=== PATIENT | female | born 1940 | race Caucasian/White ===

== ENCOUNTER 2018-12-31 10:25 | Inpatient (IN) | payer MEDICARE, BC ==
[2018-12-31] MEDS ORDERED: Sodium Chloride 0.9% 100 ML IV SCH (10:54)
[2018-12-31] MEDS ORDERED: Ondansetron 4 MG Tab.DIS PO PRN (10:54)
[2018-12-31] MEDS ORDERED: Sodium Chloride 0.9% 10 ML Syringe FLUSH PRN ×2 (10:54)
--- NOTE | 2018-12-31 11:13 | PCM.HP ---
H&P History of Present Illness - General Date of Service: 12/31/18 Admit Problem/Dx: Admission Diagnosis/Problem Admission Diagnosis/Problem Weakness Source of Information: Patient, Old Records, RN History Limitations: Reports: No Limitations - History of Present Illness Initial Comments - Free Text/Narative: Mrs Goss is a 78-year-old female who initially came through the ED 01/02 due to a dry cough, nausea, anorexia and generalized not feeling well about 4-5 days prior. It was determined she had upper lobe pneumonia on her right side along with influenza A and due to her past medical history she was considered high risk and was started on antivirals Tamiflu. She has a history of heart failure, COPD, significant renal disease, hypertension, and type 2 diabetes. Socially she lives with her is somewhat independent and has close family members. He was admitted for antivirals, antibiotics, and respiratory support. - Related Data Allergies/Adverse Reactions: Allergies Allergy/AdvReac Type Severity Reaction Status Date / Time gentamicin [Gentamicin] Allergy Severe Anaphylactic Verified 12/26/18 11:05 Shock cefuroxime axetil Allergy Diarrhea Verified 12/26/18 11:05 [From Ceftin] rosuvastatin calcium Allergy Muscle Verified 12/26/18 11:05 [From Crestor] Aches simvastatin [From Zocor] Allergy Muscle Verified 12/26/18 11:05 Aches Home Medications: Home Meds Multivitamin with Minerals [One Daily] 1 each PO BEDTIME 12/15/13 [History] Timolol Maleate/PF [Timoptic 0.5% Ocudose Drop] 1 each EYEBOTH DAILY 12/15/13 [ History] Carvedilol [Coreg] 12.5 mg PO BIDMEALS 03/21/16 [History] Aspirin [Halfprin] 81 mg PO DAILY 12/26/18 [History] Cholecalciferol (Vitamin D3) [Vitamin D3] 2,000 units PO BEDTIME 12/26/18 [ History] Fluticasone/Salmeterol [Advair 100-50] 1 puff INH BID 12/26/18 [History] Furosemide [Lasix] 20 mg PO DAILY 12/26/18 [History] Insulin Detemir [Levemir] 17 unit SUBCUT BEDTIME 12/26/18 [History] Losartan [Cozaar] 100 mg PO DAILY 12/26/18 [History] Ubidecarenone [Coenzyme Q-10] 300 mg PO BEDTIME 12/26/18 [History] cloNIDine [Catapres] 0.2 mg PO BID 12/26/18 [History] hydrALAZINE [Apresoline] 100 mg PO BID 12/26/18 [History] Past Medical History HEENT History: Reports: Glaucoma, Sinusitis Other HEENT History: sinusitis "quite regularly" Cardiovascular History: Reports: Heart Failure, Hypertension Respiratory History: Reports: COPD, Pneumonia, Recurrent, SOB Gastrointestinal History: Reports: Chronic Constipation Genitourinary History: Reports: Other (See Below) Other Genitourinary History: 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 [employer] History: Reports: Fibroids, , Other (See Below) Other OB/BYN History: Hysterectomy Musculoskeletal History: Reports: None Endocrine/Metabolic History: Reports: Diabetes, Type II - Infectious Disease History Infectious Disease History: Reports: Chicken Pox, Influenza, Measles, Mumps - Past Surgical History Head Surgeries/Procedures: Reports: None HEENT Surgical History: Reports: Adenoidectomy, Cataract Surgery, Tonsillectomy Cardiovascular Surgical History: Reports: None Respiratory Surgical History: Reports: None GI Surgical History: Reports: Appendectomy, Colonoscopy Female Surgical History: Reports: Hysterectomy Endocrine Surgical History: Reports: None Musculoskeletal Surgical History: Reports: None Dermatological Surgical History: Reports: None Social & Family History - Family History Family Medical History: Noncontributory Cardiac: Reports: Heart Failure Endocrine/Metabolic: Reports: Diabetes, type II Oncologic: Reports: Brain - Caffeine Use Caffeine Use: Reports: Coffee, Soda Other Caffeine Use: decaf coffe and diet pop - Living Situation & Occupation Living situation: Reports: , with Family Occupation: Retired H&P Review of Systems - Review of Systems: Review Of Systems: See Below General: Reports: Weakness. Denies: Fever, Diaphoresis, Decreased Appetite, Weight Gain HEENT: Reports: No Symptoms Pulmonary: Reports: Shortness of Breath. Denies: Wheezing, Pleuritic Chest Pain , Cough, Sputum Cardiovascular: Reports: Dyspnea on Exertion Gastrointestinal: Reports: No Symptoms Genitourinary: Reports: No Symptoms Musculoskeletal: Reports: No Symptoms Skin: Reports: Dryness, Bruising Psychiatric: Reports: Anxiety Neurological: Denies: Confusion, Tremors, Change in Speech Hematologic/Lymphatic: Reports: Anemia Immunologic: Reports: No Symptoms Exam - Exam Exam: See Below - Exam Quality Assessment: Supplemental Oxygen General: Alert, Oriented, Cooperative. No: Mild Distress HEENT: EACs Clear, EOMI Neck: Supple Lungs: Rhonchi Cardiovascular: Regular Rhythm, Systolic Murmur. No: Tachycardia GI/Abdominal Exam: Normal Bowel Sounds (Female) Exam: Deferred Rectal (Female) Exam: Deferred Back Exam: No: CVA Tenderness (L) Extremities: No: Pedal Edema Peripheral Pulses: 2+: Brachial (R), Radial (L) Skin: Warm, Dry, Intact Neurological: Cranial Nerves Intact Neuro Extensive - Mental Status: Alert Neuro Extensive - Motor, Sensory, Reflexes: CN II-XII Intact Psychiatric: Alert, Normal Affect, Anxious Problem List Initiated/Reviewed/Updated: Yes Orders Last 24hrs: Active Orders 24 hr Category Date Time Status Patient Status [ADT] Routine ADT 12/31/18 10:57 Ordered Blood Glucose Check, Bedside [RC] DAILY Care 12/31/18 10:54 Ordered Dietary Supplements [RC] TIDMEALS Care 12/31/18 10:54 Ordered Incentive Spirometry [RT Incentive Spirometry] [RC] Care 12/31/18 10:54 Ordered Q1HWA Oxygen Therapy [RC] PRN Care 12/31/18 10:54 Ordered Peripheral IV Care [RC] . DIRECTED Care 12/31/18 10:54 Ordered Pulse Oximetry [RC] PRN Care 12/31/18 10:54 Ordered RT Aerosol Therapy [RC] ASDIRECTED Care 12/31/18 10:54 Ordered RT Aerosol Therapy [RC] ASDIRECTED Care 12/31/18 10:55 Ordered RT Post Treatment Assessment [RC] Click to Edit Care 12/31/18 10:54 Ordered RT Pre-Treatment Assessment [RC] Click to Edit Care 12/31/18 10:54 Ordered Ready for Discharge [RC] PER UNIT ROUTINE Care 12/31/18 10:54 Ordered Up With Assistance [RC] ASDIRECTED Care 12/31/18 10:54 Ordered Vital Signs [RC] Q4H Care 12/31/18 10:54 Ordered Nutrition Reassessment/Plan, Adult [Consult to Cons 12/31/18 10:54 Ordered Ophthalmic Aide] [CONS] Routine PT Evaluation and Treatment [CONS] Routine Cons 12/31/18 10:54 Ordered [place] Diet [DIET] Diet 12/31/18 Lunch Ordered Acetaminophen [Tylenol] Med 12/31/18 10:54 Ordered 650 mg PO Q4H PRN Albuterol/Ipratropium [DuoNeb 3.0-0.5 MG/3 ML] Med 12/31/18 11:00 Ordered 3 ml NEB Q6HRRT Aspirin [Halfprin] Med 01/01/19 09:00 Ordered 81 mg PO DAILY Carvedilol [Coreg] Med 12/31/18 21:00 Ordered 12.5 mg PO BID Cholecalciferol (Vitamin D3) [Vitamin D3] Med 12/31/18 21:00 Ordered 2,000 units PO BEDTIME FA/Lycopene/Lut/MV,Ca,Iron,Min [Centrum] Med 12/31/18 21:00 Ordered 1 tab PO BEDTIME Fluticasone/Salmeterol [Advair Diskus 100-50] Med 12/31/18 21:00 Ordered 1 puff INH BID Insulin Detemir [Levemir] Med 12/31/18 21:00 Ordered 12 unit SUBCUT BEDTIME Losartan [Cozaar] Med 01/01/19 09:00 Ordered 100 mg PO DAILY Ondansetron [Zofran] Med 12/31/18 10:54 Ordered 4 mg IV Q6H PRN Sodium Chloride 0.9% [Normal Saline] 100 ml Med 12/31/18 10:54 Ordered IV ASDIRECTED Sodium Chloride 0.9% [Saline Flush] Med 12/31/18 10:54 Ordered 10 ml FLUSH Q8HR PRN Sodium Chloride 0.9% [Saline Flush] Med 12/31/18 10:54 Ordered 10 ml FLUSH Q8HR PRN Timolol Maleate [Timoptic 0.5% Ophth Soln] Med 01/01/19 09:00 Ordered 0 ml EYEBOTH DAILY cloNIDine [Catapres] Med 12/31/18 21:00 Ordered 0.3 mg PO BID hydrALAZINE [Apresoline] Med 12/31/18 21:00 Ordered 100 mg PO BID levoFLOXacin [Levaquin] Med 01/01/19 15:00 Ordered 250 mg PO Q48H Convert IV to Saline Lock [OM.PC] Routine Oth 12/31/18 10:54 Ordered Isolation [COMM] Routine Oth 12/31/18 10:54 Ordered Peripheral IV Insertion Adult [OM.PC] Routine Oth 12/31/18 10:54 Ordered Peripheral IV Insertion Adult [OM.PC] Routine Oth 12/31/18 10:54 Ordered RT Physical Performance Test [RESPCARE] Routine Oth 12/31/18 10:54 Ordered Code Status [Resuscitation Status] Routine Resus Stat 12/31/18 10:57 Ordered Medication Orders Acetaminophen (Tylenol) 650 mg PO Q4H PRN PRN Reason: Fever Greater Than 101 Albuterol/Ipratropium (Duoneb 3.0-0.5 Mg/3 Ml) 3 ml NEB Q6HRRT [facility] Aspirin (Halfprin) 81 mg PO DAILY [facility] Carvedilol (Coreg) 12.5 mg PO BID [facility] Cholecalciferol (Vitamin D3) 2,000 units PO BEDTIME [facility] Clonidine HCl (Catapres) 0.3 mg PO BID [facility] Hydralazine HCl (Apresoline) 100 mg PO BID [facility] Sodium Chloride (Normal Saline) 100 mls @ 50 mls/hr IV ASDIRECTED [facility] Insulin Detemir (Levemir) 12 unit SUBCUT BEDTIME [facility] Levofloxacin (Levaquin) 250 mg PO Q48H [facility] Losartan Potassium (Cozaar) 100 mg PO DAILY [facility] Multivitamins/Minerals (Centrum) 1 tab PO BEDTIME [facility] Ondansetron HCl (Zofran) 4 mg IV Q6H PRN PRN Reason: Nausea/Vomiting Fluticasone/Salmeterol (Advair Diskus 100-50) 1 puff INH BID [facility] Sodium Chloride (Saline Flush) 10 ml FLUSH Q8HR PRN PRN Reason: keep vein open Sodium Chloride (Saline Flush) 10 ml FLUSH Q8HR PRN PRN Reason: keep vein open Timolol Maleate (Timoptic 0.5% Ophth Soln) 0 ml EYEBOTH DAILY [facility] Assessment/Plan Comment:: History of present illness Mrs Goss is a 78-year-old female who initially came through the ED 2/ due to a dry cough, nausea, anorexia and generalized not feeling well about 4-5 days prior. It was determined she had upper lobe pneumonia on her right side along with influenza A and due to her past medical history she was considered high risk and was started on antivirals Tamiflu. She has a history of heart failure, COPD, significant renal disease, hypertension, and type 2 diabetes. Socially she lives with her is somewhat independent and has close family members. He was admitted for antivirals, antibiotics, and respiratory support. Acute care hospital course Mrs Rubin was treated with antibiotics along with antivirals. She did have significant acute on chronic renal compromise with elevated creatinine and decreased GFR, medications were adjusted and/or held for renal dose. She was hydrated and her creatinine did improve however at one point she did become slightly fluid overloaded signs of impending further rest for a compromise requiring Lasix 20 mg one time dose in which she responded well. She was treated for pneumonia with appropriate antibiotics. Respiratory therapy worked with patient quite well. She did require oxygen therapy however we were not able to completely wean her off before discharge. She did get significant shortness of breath with slight exertion that were easily recognizable with the slightest exertion and ambulation. Initial chest x-ray did show consistency with pneumonia with opacities and air bronchograms noted in her right infrahilar region. Repeated chest x-rays showed signs of mild pulmonary edema in which Lasix were given and she did improve. She remained in respiratory precautions, aggressive pulmonary toileting with incentive spirometer. Unknown PaO2 at rest or exertion however oxygen saturations were between 86-90% on the day of acute care discharge. Due to her deconditioning, requirements for oxygenation it was deemed necessity for [facility] facility to improve her oxygenation, stamina, and her overall condition. She agreed with plan Primary SNF problems Deconditioning Hypoxemia, oxygen support Pneumonia, CAP, RUL, Influence A, high risk population, completed renal dose Tamiflu. Hypokalemia, resolved Systolic hypertension in the elderly, SBP improved Acute on chronic renal failure, stage 5 (history of dialysis) creatinine January 2017 2.26 with a BUN 57, GFR 22 DD prophylaxis, LMWH Chronic problems Heart failure, chronic, functional class I , stable weight, no fluid overload, Hypertension, stable on multiple regimen, on ARB, increased clonidine T2DM, daily at bedtime long-acting Glaucoma Disposition, physical therapy consultation, change to SNF likely five-day course improve on stamina, oxygen conservation, further aggressive pulmonary toileting and ambulation close monitoring of her oxygen requirements. Change to oral antibiotics. Respiratory precautions, ICS. Consultations, Dr Mcknight, nephrology January 11 at 3:15pm. ([address] in [place] at [facility])
[2018-12-31] MEDS: Carvedilol 12.5 MG Tab PO SCH (17:03)
[2018-12-31] MEDS: Albuterol/Ipratropium 3.0-0.5 MG/3 ML Neb Soln NEB SCH ×2 (17:04→23:59)
[2018-12-31] MEDS: Fluticasone/Salmeterol 100-50 MCG Inhalation Powder 14/Diskus INH SCH (21:20)
[2018-12-31] MEDS: hydrALAZINE 50 MG Tab PO SCH (21:21)
[2018-12-31] MEDS: cloNIDine 0.1 MG Tab PO SCH (21:29)
[2018-12-31] MEDS: Multivitamins with Minerals/Iron/Folic Acid/Lycopene Tab PO SCH (21:30)
[2018-12-31] MEDS: Cholecalciferol (Vitamin D3) 1,000 Unit Tab PO SCH (21:31)
[2018-12-31] MEDS: Insulin Detemir 100 Units/ML 3 ML Pen SUBCUT SCH (21:32)
[2019-01-01] MEDS: Albuterol/Ipratropium 3.0-0.5 MG/3 ML Neb Soln NEB SCH ×4 (05:55→23:11)
[2019-01-01] MEDS: Aspirin 81 MG Tab.EC PO SCH (08:16)
[2019-01-01] MEDS: Losartan 50 MG Tab PO SCH (08:16)
[2019-01-01] MEDS: hydrALAZINE 50 MG Tab PO SCH ×2 (08:16→20:10)
[2019-01-01] MEDS: Carvedilol 12.5 MG Tab PO SCH ×2 (08:16→18:02)
[2019-01-01] MEDS: cloNIDine 0.1 MG Tab PO SCH ×2 (08:17→20:10)
[2019-01-01] MEDS: Fluticasone/Salmeterol 100-50 MCG Inhalation Powder 14/Diskus INH SCH ×2 (08:54→20:10)
[2019-01-01] MEDS: Enoxaparin 30 MG/0.3 ML Syringe SUBCUT SCH (09:17)
[2019-01-01] MEDS: Timolol Maleate 0.5% Ophth Soln 5 ML Bottle EYEBOTH SCH (09:18)
[2019-01-01] MEDS ORDERED: Levofloxacin/Dextrose 5%-Water 250 MG in Premix Bag 1 BAG IV SCH (15:00)
[2019-01-01] MEDS ORDERED: Levofloxacin 500 MG Tab PO SCH (15:00)
[2019-01-01] MEDS: Multivitamins with Minerals/Iron/Folic Acid/Lycopene Tab PO SCH (20:10)
[2019-01-01] MEDS: Cholecalciferol (Vitamin D3) 1,000 Unit Tab PO SCH (20:10)
[2019-01-01] MEDS: Insulin Detemir 100 Units/ML 3 ML Pen SUBCUT SCH (20:16)
[2019-01-02] MEDS: Albuterol/Ipratropium 3.0-0.5 MG/3 ML Neb Soln NEB SCH ×4 (04:58→22:11)
[2019-01-02] MEDS: Losartan 50 MG Tab PO SCH (08:03)
[2019-01-02] MEDS: Aspirin 81 MG Tab.EC PO SCH (08:03)
[2019-01-02] MEDS: cloNIDine 0.1 MG Tab PO SCH ×2 (08:04→20:23)
[2019-01-02] MEDS: Carvedilol 12.5 MG Tab PO SCH ×2 (08:04→17:07)
[2019-01-02] MEDS: hydrALAZINE 50 MG Tab PO SCH ×2 (08:04→20:23)
[2019-01-02] MEDS: Fluticasone/Salmeterol 100-50 MCG Inhalation Powder 14/Diskus INH SCH ×2 (08:45→20:22)
[2019-01-02] MEDS: Enoxaparin 30 MG/0.3 ML Syringe SUBCUT SCH (08:45)
[2019-01-02] MEDS: Timolol Maleate 0.5% Ophth Soln 5 ML Bottle EYEBOTH SCH (08:45)
[2019-01-02] MEDS: Acetaminophen 325 MG Tab PO PRN (11:30)
[2019-01-02] MEDS: Cholecalciferol (Vitamin D3) 1,000 Unit Tab PO SCH (20:21)
[2019-01-02] MEDS: Multivitamins with Minerals/Iron/Folic Acid/Lycopene Tab PO SCH (20:21)
[2019-01-02] MEDS: Insulin Detemir 100 Units/ML 3 ML Pen SUBCUT SCH (20:21)
[2019-01-03] MEDS: Albuterol/Ipratropium 3.0-0.5 MG/3 ML Neb Soln NEB SCH ×5 (05:24→22:06)
[2019-01-03] MEDS: Bisacodyl 5 MG Tab PO PRN ×2 (08:18→20:44)
[2019-01-03] MEDS: Aspirin 81 MG Tab.EC PO SCH (08:18)
[2019-01-03] MEDS: Losartan 50 MG Tab PO SCH (08:19)
[2019-01-03] MEDS: cloNIDine 0.1 MG Tab PO SCH ×2 (08:19→20:34)
[2019-01-03] MEDS: Carvedilol 12.5 MG Tab PO SCH ×2 (08:19→17:56)
[2019-01-03] MEDS: hydrALAZINE 50 MG Tab PO SCH ×2 (08:19→20:34)
[2019-01-03] MEDS: Timolol Maleate 0.5% Ophth Soln 5 ML Bottle EYEBOTH SCH (09:04)
[2019-01-03] MEDS: Fluticasone/Salmeterol 100-50 MCG Inhalation Powder 14/Diskus INH SCH ×2 (09:04→20:34)
[2019-01-03] MEDS: Enoxaparin 30 MG/0.3 ML Syringe SUBCUT SCH (10:03)
[2019-01-03] MEDS: Multivitamins with Minerals/Iron/Folic Acid/Lycopene Tab PO SCH (20:34)
[2019-01-03] MEDS: Cholecalciferol (Vitamin D3) 1,000 Unit Tab PO SCH (20:34)
[2019-01-03] MEDS: Insulin Detemir 100 Units/ML 3 ML Pen SUBCUT SCH (20:34)
[2019-01-03] MEDS ORDERED: hydrOXYzine HCl 25 MG Tab PO ONE (23:09)
[2019-01-04] MEDS: Acetaminophen 325 MG Tab PO PRN (00:25)
[2019-01-04] MEDS ORDERED: LORazepam 0.5 MG Tab PO PRN (00:30)
[2019-01-04] MEDS ORDERED: Furosemide 40 MG/4 ML VIAL IVPUSH ONE (01:30)
[2019-01-04] MEDS ORDERED: Furosemide 40 MG/4 ML VIAL ONE (01:34)
[2019-01-04] MEDS: Albuterol/Ipratropium 3.0-0.5 MG/3 ML Neb Soln NEB SCH ×4 (07:09→22:15)
[2019-01-04] MEDS: Fluticasone/Salmeterol 100-50 MCG Inhalation Powder 14/Diskus INH SCH ×3 (10:08→20:11)
[2019-01-04] MEDS: Carvedilol 12.5 MG Tab PO SCH ×2 (12:12→20:12)
[2019-01-04] MEDS: Losartan 50 MG Tab PO SCH (12:12)
[2019-01-04] MEDS: hydrALAZINE 50 MG Tab PO SCH ×2 (12:12→20:12)
[2019-01-04] MEDS: Aspirin 81 MG Tab.EC PO SCH (12:13)
[2019-01-04] MEDS: Timolol Maleate 0.5% Ophth Soln 5 ML Bottle EYEBOTH SCH (12:13)
[2019-01-04] MEDS: cloNIDine 0.1 MG Tab PO SCH ×2 (12:13→20:11)
[2019-01-04 14:43] LABS: BASE EXCESS ARTERIAL -1 mmol/L (-2-3); BICARBONATE,ARTERIAL 25.2 mmol/L (22-26); O2 DELIVERY DEVICE NASAL CANNULA; O2 SATURATION ARTERIAL 96 % (95-98); PCO2 ARTERIAL 48 mmHG (35-45); PO2 ARTERIAL 89 mmHG (80-105)
[2019-01-04 14:44] LABS: O2 FLOW RATE 2 L/min
[2019-01-04] MEDS: Insulin Detemir 100 Units/ML 3 ML Pen SUBCUT SCH (20:11)
[2019-01-04] MEDS: Cholecalciferol (Vitamin D3) 1,000 Unit Tab PO SCH (20:12)
[2019-01-04] MEDS: Multivitamins with Minerals/Iron/Folic Acid/Lycopene Tab PO SCH (20:12)
[2019-01-05] MEDS: Albuterol/Ipratropium 3.0-0.5 MG/3 ML Neb Soln NEB SCH ×4 (05:43→22:42)
[2019-01-05] MEDS: Fluticasone/Salmeterol 100-50 MCG Inhalation Powder 14/Diskus INH SCH ×2 (08:23→20:19)
[2019-01-05] MEDS: Carvedilol 12.5 MG Tab PO SCH ×2 (09:13→18:49)
[2019-01-05] MEDS: Losartan 50 MG Tab PO SCH (09:14)
[2019-01-05] MEDS: Aspirin 81 MG Tab.EC PO SCH (09:15)
[2019-01-05] MEDS: hydrALAZINE 50 MG Tab PO SCH ×2 (09:15→20:30)
[2019-01-05] MEDS: cloNIDine 0.1 MG Tab PO SCH ×2 (09:15→20:29)
[2019-01-05] MEDS: Timolol Maleate 0.5% Ophth Soln 5 ML Bottle EYEBOTH SCH (12:16)
[2019-01-05] MEDS: Insulin Detemir 100 Units/ML 3 ML Pen SUBCUT SCH (20:20)
[2019-01-05] MEDS: Cholecalciferol (Vitamin D3) 1,000 Unit Tab PO SCH (20:21)
[2019-01-05] MEDS: Multivitamins with Minerals/Iron/Folic Acid/Lycopene Tab PO SCH (20:21)
[2019-01-06] MEDS: Albuterol/Ipratropium 3.0-0.5 MG/3 ML Neb Soln NEB SCH ×4 (05:40→23:26)
[2019-01-06] MEDS: Carvedilol 12.5 MG Tab PO SCH ×2 (07:58→17:00)
[2019-01-06] MEDS: Fluticasone/Salmeterol 100-50 MCG Inhalation Powder 14/Diskus INH SCH ×2 (08:00→20:43)
[2019-01-06] MEDS: Timolol Maleate 0.5% Ophth Soln 5 ML Bottle EYEBOTH SCH (08:00)
[2019-01-06] MEDS: hydrALAZINE 50 MG Tab PO SCH ×2 (08:01→20:43)
[2019-01-06] MEDS: Losartan 50 MG Tab PO SCH (08:01)
[2019-01-06] MEDS: cloNIDine 0.1 MG Tab PO SCH ×2 (08:01→20:44)
[2019-01-06] MEDS: Aspirin 81 MG Tab.EC PO SCH (08:01)
[2019-01-06] MEDS: Citalopram 20 MG Tab PO SCH (19:33)
[2019-01-06] MEDS: Bisacodyl 5 MG Tab PO PRN (19:41)
[2019-01-06] MEDS: Multivitamins with Minerals/Iron/Folic Acid/Lycopene Tab PO SCH (20:43)
[2019-01-06] MEDS: Cholecalciferol (Vitamin D3) 1,000 Unit Tab PO SCH (20:44)
[2019-01-06] MEDS: Insulin Detemir 100 Units/ML 3 ML Pen SUBCUT SCH (20:47)
[2019-01-07] MEDS: Albuterol/Ipratropium 3.0-0.5 MG/3 ML Neb Soln NEB SCH ×4 (05:33→22:30)
[2019-01-07] MEDS: Citalopram 20 MG Tab PO SCH (08:18)
[2019-01-07] MEDS: Fluticasone/Salmeterol 100-50 MCG Inhalation Powder 14/Diskus INH SCH ×2 (08:18→20:17)
[2019-01-07] MEDS: Timolol Maleate 0.5% Ophth Soln 5 ML Bottle EYEBOTH SCH (08:18)
[2019-01-07] MEDS: Aspirin 81 MG Tab.EC PO SCH (08:18)
[2019-01-07] MEDS: Carvedilol 12.5 MG Tab PO SCH ×2 (08:19→17:14)
[2019-01-07] MEDS: Losartan 50 MG Tab PO SCH (08:19)
[2019-01-07] MEDS: cloNIDine 0.1 MG Tab PO SCH ×2 (08:19→20:18)
[2019-01-07] MEDS: hydrALAZINE 50 MG Tab PO SCH ×2 (08:19→20:17)
[2019-01-07] MEDS: Furosemide 20 MG Tab PO SCH (10:45)
[2019-01-07] MEDS: Bisacodyl 5 MG Tab PO PRN (13:51)
[2019-01-07] MEDS ORDERED: Sodium Chloride 0.9% 1,000 ML ONE (17:32)
[2019-01-07] MEDS: Cholecalciferol (Vitamin D3) 1,000 Unit Tab PO SCH (20:17)
[2019-01-07] MEDS: Multivitamins with Minerals/Iron/Folic Acid/Lycopene Tab PO SCH (20:17)
[2019-01-07] MEDS: Insulin Detemir 100 Units/ML 3 ML Pen SUBCUT SCH (20:21)
[2019-01-08] MEDS: Albuterol/Ipratropium 3.0-0.5 MG/3 ML Neb Soln NEB SCH ×4 (05:48→23:03)
[2019-01-08] MEDS: Fluticasone/Salmeterol 100-50 MCG Inhalation Powder 14/Diskus INH SCH ×2 (08:26→21:04)
[2019-01-08] MEDS: Carvedilol 12.5 MG Tab PO SCH ×2 (08:54→17:17)
[2019-01-08] MEDS: cloNIDine 0.1 MG Tab PO SCH ×2 (08:55→21:08)
[2019-01-08] MEDS: Losartan 50 MG Tab PO SCH (08:55)
[2019-01-08] MEDS: Bisacodyl 5 MG Tab PO PRN (08:55)
[2019-01-08] MEDS: hydrALAZINE 50 MG Tab PO SCH ×2 (08:55→21:08)
[2019-01-08] MEDS: Citalopram 20 MG Tab PO SCH (08:55)
[2019-01-08] MEDS: Furosemide 20 MG Tab PO SCH (08:56)
[2019-01-08] MEDS: Aspirin 81 MG Tab.EC PO SCH (08:56)
[2019-01-08] MEDS: Timolol Maleate 0.5% Ophth Soln 5 ML Bottle EYEBOTH SCH (08:56)
[2019-01-08] MEDS ORDERED: Polyethylene Glycol 3350 Powder 17 GM Packet PO PRN (12:55)
[2019-01-08] MEDS: Multivitamins with Minerals/Iron/Folic Acid/Lycopene Tab PO SCH (21:08)
[2019-01-08] MEDS: Cholecalciferol (Vitamin D3) 1,000 Unit Tab PO SCH (21:09)
[2019-01-08] MEDS: Insulin Detemir 100 Units/ML 3 ML Pen SUBCUT SCH (21:11)
[2019-01-09] MEDS: Albuterol/Ipratropium 3.0-0.5 MG/3 ML Neb Soln NEB SCH ×4 (05:49→22:48)
[2019-01-09] MEDS: Carvedilol 12.5 MG Tab PO SCH ×2 (08:41→17:55)
[2019-01-09] MEDS: Fluticasone/Salmeterol 100-50 MCG Inhalation Powder 14/Diskus INH SCH ×2 (08:41→21:04)
[2019-01-09] MEDS: Timolol Maleate 0.5% Ophth Soln 5 ML Bottle EYEBOTH SCH (08:41)
[2019-01-09] MEDS: hydrALAZINE 50 MG Tab PO SCH ×2 (08:41→21:03)
[2019-01-09] MEDS: Furosemide 20 MG Tab PO SCH (08:42)
[2019-01-09] MEDS: cloNIDine 0.1 MG Tab PO SCH ×2 (08:42→21:02)
[2019-01-09] MEDS: Losartan 50 MG Tab PO SCH (08:42)
[2019-01-09] MEDS: Citalopram 20 MG Tab PO SCH (08:42)
[2019-01-09] MEDS: Aspirin 81 MG Tab.EC PO SCH (08:42)
[2019-01-09] MEDS: Cholecalciferol (Vitamin D3) 1,000 Unit Tab PO SCH (21:03)
[2019-01-09] MEDS: Insulin Detemir 100 Units/ML 3 ML Pen SUBCUT SCH (21:04)
[2019-01-09] MEDS: Multivitamins with Minerals/Iron/Folic Acid/Lycopene Tab PO SCH (21:04)
[2019-01-10] MEDS: Albuterol/Ipratropium 3.0-0.5 MG/3 ML Neb Soln NEB SCH ×4 (05:51→23:56)
[2019-01-10] MEDS: Timolol Maleate 0.5% Ophth Soln 5 ML Bottle EYEBOTH SCH (08:35)
[2019-01-10] MEDS: Carvedilol 12.5 MG Tab PO SCH ×2 (08:36→17:19)
[2019-01-10] MEDS: Citalopram 20 MG Tab PO SCH (08:36)
[2019-01-10] MEDS: Losartan 50 MG Tab PO SCH (08:36)
[2019-01-10] MEDS: Fluticasone/Salmeterol 100-50 MCG Inhalation Powder 14/Diskus INH SCH ×2 (08:36→20:15)
[2019-01-10] MEDS: Furosemide 20 MG Tab PO SCH (08:37)
[2019-01-10] MEDS: cloNIDine 0.1 MG Tab PO SCH ×2 (08:37→20:14)
[2019-01-10] MEDS: hydrALAZINE 50 MG Tab PO SCH ×2 (08:37→20:11)
[2019-01-10] MEDS: Aspirin 81 MG Tab.EC PO SCH (08:37)
[2019-01-10] MEDS: Insulin Detemir 100 Units/ML 3 ML Pen SUBCUT SCH (20:10)
[2019-01-10] MEDS: Multivitamins with Minerals/Iron/Folic Acid/Lycopene Tab PO SCH (20:10)
[2019-01-10] MEDS: Cholecalciferol (Vitamin D3) 1,000 Unit Tab PO SCH (20:11)
[2019-01-11] MEDS: Albuterol/Ipratropium 3.0-0.5 MG/3 ML Neb Soln NEB SCH ×4 (05:21→22:32)
[2019-01-11] MEDS: Timolol Maleate 0.5% Ophth Soln 5 ML Bottle EYEBOTH SCH (08:10)
[2019-01-11] MEDS: Fluticasone/Salmeterol 100-50 MCG Inhalation Powder 14/Diskus INH SCH ×2 (08:10→20:19)
[2019-01-11] MEDS: Losartan 50 MG Tab PO SCH (08:11)
[2019-01-11] MEDS: hydrALAZINE 50 MG Tab PO SCH ×2 (08:11→20:20)
[2019-01-11] MEDS: Carvedilol 12.5 MG Tab PO SCH ×2 (08:12→17:01)
[2019-01-11] MEDS: cloNIDine 0.1 MG Tab PO SCH ×2 (08:12→20:21)
[2019-01-11] MEDS: Furosemide 20 MG Tab PO SCH (08:12)
[2019-01-11] MEDS: Citalopram 20 MG Tab PO SCH (08:13)
[2019-01-11] MEDS: Aspirin 81 MG Tab.EC PO SCH (08:13)
[2019-01-11] MEDS: Bisacodyl 5 MG Tab PO PRN (12:19)
[2019-01-11] MEDS: Cholecalciferol (Vitamin D3) 1,000 Unit Tab PO SCH (20:20)
[2019-01-11] MEDS: Multivitamins with Minerals/Iron/Folic Acid/Lycopene Tab PO SCH (20:20)
[2019-01-11] MEDS: Insulin Detemir 100 Units/ML 3 ML Pen SUBCUT SCH (20:23)
[2019-01-12] MEDS: Albuterol/Ipratropium 3.0-0.5 MG/3 ML Neb Soln NEB SCH ×4 (05:52→22:42)
[2019-01-12] MEDS: Timolol Maleate 0.5% Ophth Soln 5 ML Bottle EYEBOTH SCH (08:07)
[2019-01-12] MEDS: cloNIDine 0.1 MG Tab PO SCH ×2 (08:08→21:03)
[2019-01-12] MEDS: Fluticasone/Salmeterol 100-50 MCG Inhalation Powder 14/Diskus INH SCH ×2 (08:08→21:03)
[2019-01-12] MEDS: Losartan 50 MG Tab PO SCH (08:09)
[2019-01-12] MEDS: Furosemide 20 MG Tab PO SCH (08:09)
[2019-01-12] MEDS: Carvedilol 12.5 MG Tab PO SCH ×2 (08:09→17:04)
[2019-01-12] MEDS: Aspirin 81 MG Tab.EC PO SCH (08:09)
[2019-01-12] MEDS: hydrALAZINE 50 MG Tab PO SCH ×2 (08:09→21:03)
[2019-01-12] MEDS: Citalopram 20 MG Tab PO SCH (08:09)
[2019-01-12] MEDS: Cholecalciferol (Vitamin D3) 1,000 Unit Tab PO SCH (21:00)
[2019-01-12] MEDS: Multivitamins with Minerals/Iron/Folic Acid/Lycopene Tab PO SCH (21:00)
[2019-01-12] MEDS: Insulin Detemir 100 Units/ML 3 ML Pen SUBCUT SCH (21:13)
[2019-01-13] MEDS: Albuterol/Ipratropium 3.0-0.5 MG/3 ML Neb Soln NEB SCH ×4 (05:55→22:44)
[2019-01-13] MEDS: Aspirin 81 MG Tab.EC PO SCH (08:01)
[2019-01-13] MEDS: Furosemide 20 MG Tab PO SCH (08:01)
[2019-01-13] MEDS: Losartan 50 MG Tab PO SCH (08:01)
[2019-01-13] MEDS: Timolol Maleate 0.5% Ophth Soln 5 ML Bottle EYEBOTH SCH (08:01)
[2019-01-13] MEDS: Citalopram 20 MG Tab PO SCH (08:02)
[2019-01-13] MEDS: cloNIDine 0.1 MG Tab PO SCH ×2 (08:02→20:36)
[2019-01-13] MEDS: hydrALAZINE 50 MG Tab PO SCH ×2 (08:02→20:33)
[2019-01-13] MEDS: Fluticasone/Salmeterol 100-50 MCG Inhalation Powder 14/Diskus INH SCH ×2 (08:03→20:29)
[2019-01-13] MEDS: Carvedilol 12.5 MG Tab PO SCH ×2 (08:03→17:50)
[2019-01-13 09:27] LABS: ANION GAP 13.6 mmol/L (5-15)
--- NOTE | 2019-01-13 09:31 | PCM.PN ---
- General Info Date of Service: 01/13/19 Functional Status: Reports: Pain Controlled - Review of Systems General: Denies: Fever, Weakness, Fatigue HEENT: Reports: No Symptoms Pulmonary: Denies: Cough, Wheezing Cardiovascular: Reports: Dyspnea on Exertion. Denies: Chest Pain, Edema Gastrointestinal: Reports: No Symptoms Genitourinary: Reports: No Symptoms Musculoskeletal: Reports: No Symptoms Skin: Reports: No Symptoms Neurological: Denies: Confusion, Difficulty Walking Psychiatric: Reports: Other (Mild anxiety, however seems to improve with Celexa) - Patient Data Vitals - Most Recent: Last Vital Signs Temp 97.2 F 01/13/19 05:58 Pulse 63 01/13/19 08:03 Resp 20 01/13/19 05:58 BP 138/59 L 01/13/19 08:03 Pulse Ox 99 01/13/19 06:01 Weight - Most Recent: 137 lb 9 oz I&O - Last 24 Hours: Intake & Output 01/12/19 01/13/19 01/13/19 22:59 06:59 14:59 Intake Total 50 200 Balance 50 200 Lab Results Last 24 Hours: Laboratory Results - last 24 hr 01/13/19 01/13/19 Range/Units 06:24 08:30 WBC 5.80 (5.00-10.00) 10^3/uL RBC 2.74 L (3.80-5.50) 10^6/uL Hgb 8.2 L D (12.0-16.0) g/dL Hct 26.4 L (37.0-47.0) % MCV 96.4 H D (82.0-92.0) fL MCH 29.9 (27.0-31.0) pg MCHC 31.1 L (32.0-36.0) g/dL RDW 14.4 (11.5-14.5) % Plt Count 196 (150-400) 10^3/uL MPV 9.8 (7.4-10.4) fL POC Glucose 145 H (74-106) mg/dl Med Orders - Current: Current Medications Acetaminophen (Tylenol) 650 mg PO Q4H PRN PRN Reason: Fever Greater Than 101 Last Admin: 01/04/19 00:25 Dose: 650 mg Albuterol/Ipratropium (Duoneb 3.0-0.5 Mg/3 Ml) 3 ml NEB Q6HRRT [facility] Last Admin: 01/13/19 05:55 Dose: 3 ml Aspirin (Halfprin) 81 mg PO DAILY [facility] Last Admin: 01/13/19 08:01 Dose: 81 mg Bisacodyl (Dulcolax) 5 - 10 mg PO DAILY PRN PRN Reason: Constipation Last Admin: 01/11/19 12:19 Dose: 10 mg Carvedilol (Coreg) 12.5 mg PO BIDMEALS [facility] Last Admin: 01/13/19 08:03 Dose: 12.5 mg Cholecalciferol (Vitamin D3) 2,000 units PO BEDTIME [facility] Last Admin: 01/12/19 21:00 Dose: 2,000 units Citalopram Hydrobromide (Celexa) 10 mg PO DAILY [facility] Last Admin: 01/13/19 08:02 Dose: 10 mg Clonidine HCl (Catapres) 0.3 mg PO BID [facility] Last Admin: 01/13/19 08:02 Dose: 0.3 mg Furosemide (Lasix) 20 mg PO DAILY [facility] Last Admin: 01/13/19 08:01 Dose: 20 mg Hydralazine HCl (Apresoline) 100 mg PO BID [facility] Last Admin: 01/13/19 08:02 Dose: 100 mg Insulin Detemir (Levemir) 12 unit SUBCUT BEDTIME [facility] Last Admin: 01/12/19 21:13 Dose: 12 unit Losartan Potassium (Cozaar) 100 mg PO DAILY [facility] Last Admin: 01/13/19 08:01 Dose: 100 mg Multivitamins/Minerals (Centrum) 1 tab PO BEDTIME [facility] Last Admin: 01/12/19 21:00 Dose: 1 tab Ondansetron HCl (Zofran Odt) 4 mg PO Q6H PRN PRN Reason: Nausea/Vomiting Polyethylene Glycol (Miralax) 17 gm PO BEDTIME PRN PRN Reason: Constipation Last Admin: 01/12/19 12:37 Dose: 17 gm Fluticasone/Salmeterol (Advair Diskus 100-50) 1 puff INH BID [facility] Last Admin: 01/13/19 08:03 Dose: 1 puff Timolol Maleate (Timoptic 0.5% Ophth Soln) 0 ml EYEBOTH DAILY [facility] Last Admin: 01/13/19 08:01 Dose: 1 drop Discontinued Medications Enoxaparin Sodium (Lovenox) 30 mg SUBCUT DAILY [facility] Last Admin: 01/03/19 10:03 Dose: 30 mg Furosemide (Lasix) Confirm Administered Dose 40 mg .ROUTE .STK-MED ONE Stop: 01/04/19 01:35 Last Admin: 01/04/19 01:59 Dose: Not Given Furosemide (Lasix) 20 mg IVPUSH NOW ONE Stop: 01/04/19 01:31 Last Admin: 01/04/19 01:40 Dose: 20 mg Hydroxyzine HCl (Atarax) 25 mg PO ONETIME ONE Stop: 01/03/19 23:10 Last Admin: 01/03/19 23:35 Dose: 25 mg Levofloxacin/Dextrose 250 mg/ (Premix) 50 mls @ 50 mls/hr IV Q48H [facility] Levofloxacin (Levaquin) 250 mg PO Q48H [facility] Last Admin: 01/01/19 14:33 Dose: 250 mg Lorazepam (Ativan) 0.5 mg PO ONETIME PRN PRN Reason: Anxiety Last Admin: 01/04/19 00:30 Dose: 0.5 mg - Exam Quality Assessment: Supplemental Oxygen (2 L nasal cannula) General: Alert, Oriented, Cooperative, No Acute Distress Neck: No JVD Lungs: Decreased Breath Sounds. No: Crackles, Rhonchi, Wheezing Cardiovascular: Regular Rate, Regular Rhythm GI/Abdominal Exam: Soft (Female) Exam: Deferred Back Exam: No: CVA Tenderness (L), CVA Tenderness (R) Extremities: No Pedal Edema Peripheral Pulses: 2+: Radial (L), Radial (R) Skin: Warm, Dry, Intact Neurological: No New Focal Deficit Psy/Mental Status: Alert, Normal Affect, Normal Mood - Problem List Review Problem List Initiated/Reviewed/Updated: Yes - My Orders Last 24 Hours: My Active Orders 01/13/19 08:30 BASIC METABOLIC PANEL,BMP [CHEM] Routine - Plan Plan:: History of present illness Mrs Goss is a 78-year-old female who initially came through the ED 01/02 due to a dry cough, nausea, anorexia and generalized not feeling well about 4-5 days prior. It was determined she had upper lobe pneumonia on her right side along with influenza A and due to her past medical history she was considered high risk and was started on antivirals Tamiflu. She has a history of heart failure, COPD, significant renal disease, hypertension, and type 2 diabetes. Socially she lives with her is somewhat independent and has close family members. He was admitted for antivirals, antibiotics, and respiratory support. Acute care hospital course Mrs Rubin was treated with antibiotics along with antivirals. She did have significant acute on chronic renal compromise with elevated creatinine and decreased GFR, medications were adjusted and/or held for renal dose. She was hydrated and her creatinine did improve however at one point she did become slightly fluid overloaded signs of impending further rest for a compromise requiring Lasix 20 mg one time dose in which she responded well. She was treated for pneumonia with appropriate antibiotics. Respiratory therapy worked with patient quite well. She did require oxygen therapy however we were not able to completely wean her off before discharge. She did get significant shortness of breath with slight exertion that were easily recognizable with the slightest exertion and ambulation. Initial chest x-ray did show consistency with pneumonia with opacities and air bronchograms noted in her right infrahilar region. Repeated chest x-rays showed signs of mild pulmonary edema in which Lasix were given and she did improve. She remained in respiratory precautions, aggressive pulmonary toileting with incentive spirometer. Unknown PaO2 at rest or exertion however oxygen saturations were between 86-90% on the day of acute care discharge. Due to her deconditioning, requirements for oxygenation it was deemed necessity for group home facility to improve her oxygenation, stamina, and her overall condition. She agreed with plan Primary SNF problems Deconditioning Hypoxemia, oxygen support Pneumonia, CAP, RUL, Influence A, high risk population, completed renal dose Tamiflu. 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 Long discussion with patient regarding at least 16-20 hours oxygen per day is strongly recommended. Will continue on Celexa will decide to increase the dosage in 2 weeks if needed.
[2019-01-13] MEDS: Multivitamins with Minerals/Iron/Folic Acid/Lycopene Tab PO SCH (20:37)
[2019-01-13] MEDS: Cholecalciferol (Vitamin D3) 1,000 Unit Tab PO SCH (20:37)
[2019-01-13] MEDS: Insulin Detemir 100 Units/ML 3 ML Pen SUBCUT SCH (20:43)
[2019-01-14] MEDS: Bisacodyl 5 MG Tab PO PRN (03:09)
[2019-01-14] MEDS: Albuterol/Ipratropium 3.0-0.5 MG/3 ML Neb Soln NEB SCH ×2 (03:09→06:23)
[2019-01-14 06:30] VITALS: BP 135/48
[2019-01-14] MEDS: Furosemide 20 MG Tab PO SCH (08:47)
[2019-01-14] MEDS: Timolol Maleate 0.5% Ophth Soln 5 ML Bottle EYEBOTH SCH (08:47)
[2019-01-14] MEDS: Losartan 50 MG Tab PO SCH (08:48)
[2019-01-14] MEDS: Aspirin 81 MG Tab.EC PO SCH (08:48)
[2019-01-14] MEDS: Carvedilol 12.5 MG Tab PO SCH (08:48)
[2019-01-14] MEDS: Citalopram 20 MG Tab PO SCH (08:48)
[2019-01-14] MEDS: cloNIDine 0.1 MG Tab PO SCH (08:48)
[2019-01-14] MEDS: hydrALAZINE 50 MG Tab PO SCH (08:49)
[2019-01-14] MEDS: Fluticasone/Salmeterol 100-50 MCG Inhalation Powder 14/Diskus INH SCH (08:50)
--- NOTE | 2019-01-14 10:19 | PCM.DCSUM1 ---
Discharge Summary - Hospital Course Diagnosis: Stroke: No - Discharge Data Discharge Date: 01/14/19 Discharge Disposition: Home, Self-Care 01 Condition: Fair - Patient Summary/Data Consults: Consultations 12/31/18 10:54 Nutrition Reassessment/Plan, Adult [Consult to Scheduling Clerk] [CONS] Routine PT Evaluation and Treatment [CONS] Routine - Patient Instructions Diet: Diabetic Diet Activity: As Tolerated Driving: Do Not Drive Showering/Bathing: May Shower Notify Provider of: Fever, Nausea and/or Vomiting Other/Special Instructions: report worsening shortness of breath, report any increase in oxygen need. Follow-up middle Friday of next week provider/ location of your choice, You will have lab draws at that time - Discharge Plan *PRESCRIPTION DRUG MONITORING PROGRAM REVIEWED*: Not Applicable *COPY OF PRESCRIPTION DRUG MONITORING REPORT IN PATIENT EZIO: Not Applicable Prescriptions/Med Rec: Citalopram [Citalopram HBr] 20 mg PO DAILY #30 tablet Home Medications: Home Meds Multivitamin with Minerals [One Daily] 1 each PO BEDTIME 12/15/13 [History] Timolol Maleate/PF [Timoptic 0.5% Ocudose Drop] 1 each EYEBOTH DAILY 12/15/13 [ History] Carvedilol [Coreg] 12.5 mg PO BIDMEALS 03/21/16 [History] Aspirin [Halfprin] 81 mg PO DAILY 12/26/18 [History] Cholecalciferol (Vitamin D3) [Vitamin D3] 2,000 units PO BEDTIME 12/26/18 [ History] Fluticasone/Salmeterol [Advair 100-50] 1 puff INH BID 12/26/18 [History] Furosemide [Lasix] 20 mg PO DAILY 12/26/18 [History] Insulin Detemir [Levemir] 17 unit SUBCUT BEDTIME 12/26/18 [History] Losartan [Cozaar] 100 mg PO DAILY 12/26/18 [History] Ubidecarenone [Coenzyme Q-10] 300 mg PO BEDTIME 12/26/18 [History] cloNIDine [Catapres] 0.2 mg PO BID 12/26/18 [History] hydrALAZINE [Apresoline] 100 mg PO BID 12/26/18 [History] Citalopram [Citalopram HBr] 20 mg PO DAILY #30 tablet 01/14/19 [Rx] - Discharge Summary/Plan Comment DC Time >30 min.: Yes Discharge Summary/Plan Comment: Final diagnosis Deconditioning COPD/Hypoxemia, low oxygen added. Pneumonia, CAP, RUL, resolved Influence A, high risk population, completed renal dose Tamiflu. 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 It was determined she had upper lobe pneumonia on her right side along with influenza A and due to her past medical history she was considered high risk and was started on antivirals Tamiflu. She has a history of heart failure, COPD, significant renal disease, hypertension, and type 2 diabetes. Socially she lives with her is somewhat independent and has close family members. He was admitted for antivirals, antibiotics, and respiratory support. Acute care hospital course Mrs Rubin was treated with antibiotics along with antivirals. She did have significant acute on chronic renal compromise with elevated creatinine and decreased GFR, medications were adjusted and/or held for renal dose. She was hydrated and her creatinine did improve however at one point she did become slightly fluid overloaded signs of impending further rest for a compromise requiring Lasix 20 mg one time dose in which she responded well. She was treated for pneumonia with appropriate antibiotics. Respiratory therapy worked with patient quite well. She did require oxygen therapy however we were not able to completely wean her off before discharge. She did get significant shortness of breath with slight exertion that were easily recognizable with the slightest exertion and ambulation. Initial chest x-ray did show consistency with pneumonia with opacities and air bronchograms noted in her right infrahilar region. Repeated chest x-rays showed signs of mild pulmonary edema in which Lasix were given and she did improve. She remained in respiratory precautions, aggressive pulmonary toileting with incentive spirometer. Unknown PaO2 at rest or exertion however oxygen saturations were between 86-90% on the day of acute care discharge. Due to her deconditioning, requirements for oxygenation it was deemed necessity for prison facility to improve her oxygenation, stamina, and her overall condition. She agreed with plan Swing bed hospital course Patient did well, she required oxygen throughout her swing bed hospital course and she was set up for home oxygen. Patient was started on 10 mg a laxative due to significant nighttime phobias in which she would stay up most of the night at home and here due to fears of dying. His was improved with Celexa 10 mg daily however this was increased upon discharge to 20 mg. For DVT prophylaxis, LMWH Medication changes last adjustments upon discharge Hold losartan until Friday due to hyperkalemia Hold Lasix until follow-up, creatinine elevated Celexa 20 mg by mouth daily,(newly added while in swing bed) Disposition Patient will be discharged from the hospital with home oxygen therapy set up. She will follow-up early next week Considerations at follow-up Ensure nephrology appointment Assess potassium and creatinine levels, Consider restarting losartan or reduced dosage - General Info Date of Service: 01/14/19 Functional Status: Reports: Pain Controlled - Review of Systems General: Reports: No Symptoms HEENT: Reports: No Symptoms Cardiovascular: Reports: No Symptoms Psychiatric: Denies: Anxiety - Patient Data Vitals - Most Recent: Last Vital Signs Temp 98.5 F 01/14/19 06:30 Pulse 62 01/14/19 08:48 Resp 18 01/14/19 06:30 BP 135/48 L 01/14/19 08:49 Pulse Ox 95 01/14/19 06:30 Weight - Most Recent: 143 lb 2 oz I&O - Last 24 hours: Intake & Output 01/13/19 01/14/19 01/14/19 22:59 06:59 14:59 Intake Total 480 100 Output Total 600 Balance 480 -500 Lab Results - Last 24 hrs: Laboratory Results - last 24 hr 01/14/19 Range/Units 06:12 POC Glucose 137 H (74-106) mg/dl Med Orders - Current: Current Medications Acetaminophen (Tylenol) 650 mg PO Q4H PRN PRN Reason: Fever Greater Than 101 Last Admin: 01/04/19 00:25 Dose: 650 mg Albuterol/Ipratropium (Duoneb 3.0-0.5 Mg/3 Ml) 3 ml NEB Q6HRRT GRACIELA Last Admin: 01/14/19 06:23 Dose: Not Given Aspirin (Halfprin) 81 mg PO DAILY [facility] Last Admin: 01/14/19 08:48 Dose: 81 mg Bisacodyl (Dulcolax) 5 - 10 mg PO DAILY PRN PRN Reason: Constipation Last Admin: 01/14/19 03:09 Dose: 5 mg Carvedilol (Coreg) 12.5 mg PO BIDMEALS [facility] Last Admin: 01/14/19 08:48 Dose: 12.5 mg Cholecalciferol (Vitamin D3) 2,000 units PO BEDTIME [facility] Last Admin: 01/13/19 20:37 Dose: 2,000 units Citalopram Hydrobromide (Celexa) 10 mg PO DAILY [facility] Last Admin: 01/14/19 08:48 Dose: 10 mg Clonidine HCl (Catapres) 0.3 mg PO BID [facility] Last Admin: 01/14/19 08:48 Dose: 0.3 mg Furosemide (Lasix) 20 mg PO DAILY [facility] Last Admin: 01/14/19 08:47 Dose: 20 mg Hydralazine HCl (Apresoline) 100 mg PO BID [facility] Last Admin: 01/14/19 08:49 Dose: 100 mg Insulin Detemir (Levemir) 12 unit SUBCUT BEDTIME [facility] Last Admin: 01/13/19 20:43 Dose: 12 unit Losartan Potassium (Cozaar) 100 mg PO DAILY [facility] Last Admin: 01/14/19 08:48 Dose: 100 mg Multivitamins/Minerals (Centrum) 1 tab PO BEDTIME [facility] Last Admin: 01/13/19 20:37 Dose: 1 tab Ondansetron HCl (Zofran Odt) 4 mg PO Q6H PRN PRN Reason: Nausea/Vomiting Polyethylene Glycol (Miralax) 17 gm PO BEDTIME PRN PRN Reason: Constipation Last Admin: 01/12/19 12:37 Dose: 17 gm Fluticasone/Salmeterol (Advair Diskus 100-50) 1 puff INH BID [facility] Last Admin: 01/14/19 08:50 Dose: 1 puff Timolol Maleate (Timoptic 0.5% Ophth Soln) 0 ml EYEBOTH DAILY [facility] Last Admin: 01/14/19 08:47 Dose: 1 drop Discontinued Medications Enoxaparin Sodium (Lovenox) 30 mg SUBCUT DAILY [facility] Last Admin: 01/03/19 10:03 Dose: 30 mg Furosemide (Lasix) Confirm Administered Dose 40 mg .ROUTE .STK-MED ONE Stop: 01/04/19 01:35 Last Admin: 01/04/19 01:59 Dose: Not Given Furosemide (Lasix) 20 mg IVPUSH NOW ONE Stop: 01/04/19 01:31 Last Admin: 01/04/19 01:40 Dose: 20 mg Hydroxyzine HCl (Atarax) 25 mg PO ONETIME ONE Stop: 01/03/19 23:10 Last Admin: 01/03/19 23:35 Dose: 25 mg Levofloxacin/Dextrose 250 mg/ (Premix) 50 mls @ 50 mls/hr IV Q48H [facility] Levofloxacin (Levaquin) 250 mg PO Q48H [facility] Last Admin: 01/01/19 14:33 Dose: 250 mg Lorazepam (Ativan) 0.5 mg PO ONETIME PRN PRN Reason: Anxiety Last Admin: 01/04/19 00:30 Dose: 0.5 mg - Exam Quality Assessment: Reports: Supplemental Oxygen General: Reports: Alert, Oriented Psy/Mental Status: Reports: Alert
== END 2019-01-14 10:30 | disposition home or self-care (01) | DRG 291 ==
LOC: KA.MS 10:25
PROVIDERS: ADMIT Nurse Practitioner Family; ATTEND Family Medicine
DX: I50.33 Acute on chronic diastolic (congestive) heart failure (principal); J18.1 Lobar pneumonia, unspecified organism; J10.00 Influenza due to other identified influenza virus with unspecified type of pneumonia; J44.0 Chronic obstructive pulmonary disease with (acute) lower respiratory infection; N18.5 Chronic kidney disease, stage 5; N17.9 Acute kidney failure, unspecified; I13.2 Hypertensive heart and chronic kidney disease with heart failure and with stage 5 chronic kidney disease, or end stage renal disease; E87.5 Hyperkalemia; H40.9 Unspecified glaucoma; F40.9 Phobic anxiety disorder, unspecified; R09.02 Hypoxemia; J32.9 Chronic sinusitis, unspecified; K59.09 Other constipation; E11.22 Type 2 diabetes mellitus with diabetic chronic kidney disease; Z88.8 Allergy status to other drugs, medicaments and biological substances; Z88.1 Allergy status to other antibiotic agents; Z79.82 Long term (current) use of aspirin; Z79.4 Long term (current) use of insulin; Z90.710 Acquired absence of both cervix and uterus; Z98.49 Cataract extraction status, unspecified eye
CPT/HCPCS: 36415; 36600; 80048; 82803; 82962; 85027; 94640; 97110-GP; 97162-GP; A9270-GY; J1650; J1815-GY; J1940; J7620-GY

== ENCOUNTER 2019-02-14 21:06 | Inpatient (IN) | payer MEDICARE, BC ==
--- NOTE | 2019-02-14 21:27 | EDM.PDOC ---
ED HPI GENERAL MEDICAL PROBLEM - General Chief Complaint: General Stated Complaint: WEAKNESS Time Seen by Provider: 02/14/19 21:21 Source of Information: Reports: Patient History Limitations: Reports: No Limitations - History of Present Illness INITIAL COMMENTS - FREE TEXT/NARRATIVE: 78 YO WF presents to ER complaining of generalized weakness, decreased appetite and deconditioning which has been progressively worsening since her last hospitalization/discharge on jan 14 2019. Pt was admitted for pneumonia and influenza A at that time. Pt reports she has been O2 dependent since discharge. Pt denies any worsening in breathing or increased oxygen dependence. Pt denies chest pain, or diaphoresis. Pt without fever/chills. No nausea/vomiting or diarrhea. Family became concerned tonight because she was unable to stand due to her weakness. Pt has been unsteady on her feet since discharge but has been able to ambulate with assistance until this evening. Onset: Unknown/Unsure Duration: Chronic Location: Reports: Generalized Severity: Moderate Improves with: Reports: None Worsens with: Reports: Movement Associated Symptoms: Reports: No Other Symptoms, Loss of Appetite, Weakness. Denies: Confusion, Chest Pain, Cough, cough w sputum, Fever/Chills, Headaches, Nausea/Vomiting, Rash, Seizure, Shortness of Breath, Syncope - Related Data Allergies Allergy/AdvReac Type Severity Reaction Status Date / Time gentamicin [Gentamicin] Allergy Severe Anaphylactic Verified 02/14/19 21:20 Shock cefuroxime axetil Allergy Diarrhea Verified 02/14/19 21:20 [From Ceftin] rosuvastatin calcium Allergy Muscle Verified 02/14/19 21:20 [From Crestor] Aches simvastatin [From Zocor] Allergy Muscle Verified 02/14/19 21:20 Aches Home Meds: Home Meds Multivitamin with Minerals [One Daily] 1 each PO BEDTIME 12/15/13 [History] Timolol Maleate/PF [Timoptic 0.5% Ocudose Drop] 1 each EYEBOTH DAILY 12/15/13 [ History] Carvedilol [Coreg] 12.5 mg PO BIDMEALS 03/21/16 [History] Aspirin [Halfprin] 81 mg PO DAILY 12/26/18 [History] Cholecalciferol (Vitamin D3) [Vitamin D3] 2,000 units PO BEDTIME 12/26/18 [ History] Fluticasone/Salmeterol [Advair 100-50] 1 puff INH BID 12/26/18 [History] Furosemide [Lasix] 20 mg PO DAILY 12/26/18 [History] Insulin Detemir [Levemir] 17 unit SUBCUT BEDTIME 12/26/18 [History] Losartan [Cozaar] 50 mg PO DAILY 12/26/18 [History] Ubidecarenone [Coenzyme Q-10] 300 mg PO BEDTIME 12/26/18 [History] cloNIDine [Catapres] 0.2 mg PO BID 12/26/18 [History] hydrALAZINE [Apresoline] 50 mg PO BID 12/26/18 [History] Citalopram [Citalopram HBr] 20 mg PO DAILY #30 tablet 01/14/19 [Rx] Past Medical History HEENT History: Reports: Glaucoma, Sinusitis Other HEENT History: sinusitis "quite regularly" Cardiovascular History: Reports: Heart Failure, Hypertension Respiratory History: Reports: COPD, Pneumonia, Recurrent, SOB Gastrointestinal History: Reports: Chronic Constipation Genitourinary History: Reports: Other (See Below) Other Genitourinary History: 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 HOUSE OFFICER History: Reports: Fibroids, , Other (See Below) Other HOUSE OFFICER History: Hysterectomy Musculoskeletal History: Reports: None Endocrine/Metabolic History: Reports: Diabetes, Type II - Infectious Disease History Infectious Disease History: Reports: Chicken Pox, Influenza, Measles, Mumps - Past Surgical History Head Surgeries/Procedures: Reports: None HEENT Surgical History: Reports: Adenoidectomy, Cataract Surgery, Tonsillectomy Cardiovascular Surgical History: Reports: None Respiratory Surgical History: Reports: None GI Surgical History: Reports: Appendectomy, Colonoscopy Female Surgical History: Reports: Hysterectomy Endocrine Surgical History: Reports: None Musculoskeletal Surgical History: Reports: None Dermatological Surgical History: Reports: None Social & Family History - Family History Family Medical History: Noncontributory Cardiac: Reports: Heart Failure Endocrine/Metabolic: Reports: Diabetes, type II Oncologic: Reports: Brain - Caffeine Use Caffeine Use: Reports: Coffee, Soda Other Caffeine Use: decaf coffe and diet pop - Living Situation & Occupation Living situation: Reports: , with Family Occupation: Retired ED ROS GENERAL - Review of Systems Review Of Systems: See Below Constitutional: Reports: Weakness, Fatigue, Decreased Appetite HEENT: Reports: No Symptoms Respiratory: Reports: No Symptoms Cardiovascular: Reports: No Symptoms Endocrine: Reports: No Symptoms GI/Abdominal: Reports: No Symptoms : Reports: No Symptoms Musculoskeletal: Reports: No Symptoms Skin: Reports: No Symptoms Neurological: Reports: No Symptoms Psychiatric: Reports: No Symptoms Hematologic/Lymphatic: Reports: No Symptoms Immunologic: Reports: No Symptoms ED EXAM, GENERAL - Physical Exam Exam: See Below Exam Limited By: No Limitations General Appearance: Alert, WD/WN, No Apparent Distress Eye Exam: Bilateral Eye: PERRL Nose: Normal Inspection, Normal Mucosa, No Blood Throat/Mouth: Normal Inspection, Normal Lips, Normal Teeth, Normal Gums, Normal Oropharynx, Normal Voice, No Airway Compromise Head: Atraumatic, Normocephalic Neck: Normal Inspection, Supple, Non-Tender, Full Range of Motion Respiratory/Chest: No Respiratory Distress, Lungs Clear, Normal Breath Sounds, No Accessory Muscle Use, Chest Non-Tender Cardiovascular: Normal Peripheral Pulses, Regular Rate, Rhythm, No Edema, No Gallop, No JVD, No Rub, Systolic Murmur GI/Abdominal: Normal Bowel Sounds, Soft, Non-Tender, No Organomegaly, No Distention, No Abnormal Bruit, No Mass Back Exam: Normal Inspection, Full Range of Motion, NT Extremities: Normal Inspection, Normal Range of Motion, Non-Tender, Normal Capillary Refill, No Pedal Edema Neurological: Alert, Oriented, CN II-XII Intact, Normal Cognition, Normal Reflexes Psychiatric: Normal Mood, Flat Affect Skin Exam: Warm, Dry, Intact, Normal Color, No Rash EKG INTERPRETATION EKG Date: 02/14/19 Time: 21:49 Rhythm: NSR Rate (Beats/Min): 55 [place]: Normal P-Wave: Present QRS: Normal ST-T: Normal QT: Normal Course - Vital Signs Last Recorded V/S: Last Vital Signs Temp 36.0 C 02/14/19 21:16 Pulse 55 L 02/14/19 22:27 Resp 20 02/14/19 22:27 BP 143/34 H 02/14/19 22:27 Pulse Ox 96 02/14/19 22:27 - Orders/Labs/Meds Orders: Active Orders 24 hr Category Date Time Status EKG Documentation Completion [RC] ASDIRECTED Care 02/14/19 21:30 Active Peripheral IV Care [RC] . DIRECTED Care 02/14/19 21:30 Active Chest 1V Frontal [CR] Stat Exams 02/14/19 21:30 Ordered Sodium Chloride 0.9% [Saline Flush] Med 02/14/19 21:30 Active 10 ml FLUSH Q8HR PRN Peripheral IV Insertion Adult [OM.PC] Routine Oth 02/14/19 21:30 Ordered EKG 12 Lead [EK] Routine Ther 02/14/19 21:30 Ordered Medication Orders Sodium Chloride (Saline Flush) 10 ml FLUSH Q8HR PRN PRN Reason: keep vein open Labs: Laboratory Tests 02/14/19 02/14/19 02/14/19 Range/Units 22:00 22:15 22:15 WBC 4.94 L (5.00-10.00) 10^3/uL RBC 3.10 L (3.80-5.50) 10^6/uL Hgb 9.6 L (12.0-16.0) g/dL Hct 30.0 L (37.0-47.0) % MCV 96.8 H (82.0-92.0) fL MCH 31.0 (27.0-31.0) pg MCHC 32.0 (32.0-36.0) g/dL RDW 14.4 (11.5-14.5) % Plt Count 191 (150-400) 10^3/uL MPV 9.5 (7.4-10.4) fL Immature Gran % (Auto) 0.2 (0.0-5.0) % Neut % (Auto) 80.8 H (50.0-70.0) % Lymph % (Auto) 10.3 L (20.0-40.0) % [place] % (Auto) 7.3 (2.0-8.0) % Eos % (Auto) 0.8 L (1.0-3.0) % Baso % (Auto) 0.6 (0.0-1.0) % Immature Gran # (Auto) 0.01 (0.00-0.50) 10^3/uL Neut # (Auto) 3.99 (2.50-7.00) 10^3/uL Lymph # (Auto) 0.51 L (1.00-4.00) 10^3/uL [place] # (Auto) 0.36 (0.10-0.80) 10^3/uL Eos # (Auto) 0.04 L (0.10-0.30) 10^3/uL Baso # (Auto) 0.03 (0.00-0.10) 10^3/uL Sodium 143 (136-145) mmol/L Potassium 4.5 (3.3-5.3) mmol/L Chloride 100 (98-115) mmol/L Carbon Dioxide 32.2 H (21.0-32.0) mmol/L Anion Gap 15.3 H (5-15) mmol/L BUN 69 H* (6-25) mg/dL Creatinine 2.97 H (0.51-1.17) mg/dL Est Cr Clr Drug Dosing 11.57 mL/min Estimated GFR (MDRD) 15 mL/min Glucose 97 (75 - 99) mg/dL Calcium 8.8 (8.7-10.3) mg/dL Total Bilirubin 0.7 (0.2-1.0) mg/dL AST 24 (15-37) U/L ALT 19 (12-78) U/L Alkaline Phosphatase 79 (46-116) IU/L Creatine Kinase 35 (26-276) U/L CK-MB (CK-2) 2.00 (0.00-4.30) ng/mL Troponin I 0.04 (0.00-0.070) ng/mL B-Natriuretic Peptide 1310 H (0-100) pg/mL Total Protein 6.5 (6.4-8.2) g/dL Albumin 2.83 L (3.00-4.80) g/dL Specimen Type Urincath Urine Color Yellow (YELLOW) Urine Appearance Slightly cloudy H (CLEAR) Urine pH 5.5 (5.0-9.0) Ur Specific [place] 1.015 (1.005-1.030) Urine Protein 100 H (NEGATIVE) mg/dL Urine Glucose (UA) Negative (NEGATIVE) mg/dL Urine Ketones Negative (NEGATIVE) mg/dL Urine Occult Blood Negative (NEGATIVE) Urine Nitrite Negative (NEGATIVE) Urine Bilirubin Negative (NEGATIVE) Urine Urobilinogen 1.0 (0.2-1.0) E.U./dL Ur Leukocyte Esterase Negative (NEGATIVE) Urine RBC 0-5 (0-5) /HPF Urine WBC 0-5 (0-5) /HPF Ur Epithelial Cells Few /LPF Urine Bacteria Few (NONE TO FEW) /HPF Meds: Medications Generic Name Dose Route Start Last Admin Trade Name Freq PRN Reason Stop Dose Admin Sodium Chloride 10 ml 02/14/19 21:30 Saline Flush FLUSH Q8HR PRN keep vein open - Radiology Interpretation Free Text/Narrative:: CXR- BRONCHIAL WALL THICKENING WITH POSSIBLE CONSOLIDATION IN LOWER LOBES Departure - Departure Time of Disposition: 23:25 Disposition: Admitted As Inpatient 68 Condition: Poor Clinical Impression: CHF, Congestive heart failure, Renal insufficiency - Discharge Information Referrals: PCP,Not In Area [Primary Care Provider] - Forms: ED Department Discharge - My Orders Last 24 Hours: My Active Orders 02/14/19 21:30 EKG Documentation Completion [RC] ASDIRECTED Peripheral IV Care [RC] . DIRECTED Chest 1V Frontal [CR] Stat Sodium Chloride 0.9% [Saline Flush] 10 ml FLUSH Q8HR PRN Peripheral IV Insertion Adult [OM.PC] Routine EKG 12 Lead [EK] Routine - Assessment/Plan Last 24 Hours: My Active Orders 02/14/19 21:30 EKG Documentation Completion [RC] ASDIRECTED Peripheral IV Care [RC] . DIRECTED Chest 1V Frontal [CR] Stat Sodium Chloride 0.9% [Saline Flush] 10 ml FLUSH Q8HR PRN Peripheral IV Insertion Adult [OM.PC] Routine EKG 12 Lead [EK] Routine Assessment:: 1. CHF exacerbation 2. Chronic renal failure- no change from last hospitalization 12/21/18 3. generalized weakness 4. deconditioned state Plan: 1. admit to medicine- Karley MULLEN 2. lasix 40mg IV BID 3. repeat labs in am 4. consider nephrology/cardiology follow up 5. supportive care
[2019-02-14] MEDS ORDERED: Sodium Chloride 0.9% 10 ML Syringe FLUSH PRN ×2 (21:30→23:27)
[2019-02-14 22:49] LABS: ANION GAP 15.3 mmol/L (5-15)
[2019-02-14] MEDS ORDERED: LORazepam 2 MG/ML SDV IV ONE (23:27)
[2019-02-14] MEDS ORDERED: Furosemide 40 MG/4 ML VIAL IVPUSH SCH (23:30)
[2019-02-14] MEDS ORDERED: Furosemide 40 MG/4 ML VIAL ONE (23:49)
[2019-02-15 08:12] LABS: ANION GAP 15.4 mmol/L (5-15)
--- NOTE | 2019-02-15 08:27 | CR ---
[id number] RAD/RAD Chest PA or AP 1V EXAM: SINGLE VIEW CHEST. INDICATION: WEAKNESS COMPARISON: CORRELATION IS MADE WITH THE EXAM OF DECEMBER 29, 2018 FINDINGS: There has been progressive discoid atelectasis at the right lung base. Bibasilar infiltrates have developed. Small bilateral effusions are seen. The cardiac silhouette is enlarged but stable. IMPRESSION: BIBASILAR PNEUMONIA, EFFUSIONS, AND ATELECTASIS. Josias Laureano MD 02/15/19 0825 Thank you for allowing us to participate in the care of your patient.
--- NOTE | 2019-02-15 10:32 | PCM.HP ---
H&P History of Present Illness - General Date of Service: 02/15/19 Admit Problem/Dx: Admission Diagnosis/Problem Admission Diagnosis/Problem CHF, Congestive heart failure Source of Information: Patient, Old Records, Provider, RN History Limitations: Reports: No Limitations - History of Present Illness Initial Comments - Free Text/Narative: This is a 78 year old female who presented to the ED last night due to significant weakness and poor appetite. Patient had been hospitalized previously with right upper lobe pneumonia and influenza A with a discharge date of 01/14/19. Patient has been on 2 liters of continuous oxygen since that time and reports that she just hasn't been feeling well. She had made a few attempts to see her PCP and carton forming machine helper at [facility], however she notes that it would storm each time she was supposed to go. Family became concerned last night as patient was unable to stand due to significant weakness. She had been unsteady on her feet since hospital discharge, but had been able to ambulate with assistance until last evening. Patient had work-up in the ED and was subsequently admitted for further monitoring and consult with nephrology. - Related Data Allergies/Adverse Reactions: Allergies Allergy/AdvReac Type Severity Reaction Status Date / Time gentamicin [Gentamicin] Allergy Severe Anaphylactic Verified 02/14/19 21:20 Shock cefuroxime axetil Allergy Diarrhea Verified 02/14/19 21:20 [From Ceftin] rosuvastatin calcium Allergy Muscle Verified 02/14/19 21:20 [From Crestor] Aches simvastatin [From Zocor] Allergy Muscle Verified 02/14/19 21:20 Aches Home Medications: Home Meds Multivitamin with Minerals [One Daily] 1 each PO BEDTIME 12/15/13 [History] Timolol Maleate/PF [Timoptic 0.5% Ocudose Drop] 1 each EYEBOTH DAILY 12/15/13 [ History] Carvedilol [Coreg] 12.5 mg PO BIDMEALS 03/21/16 [History] Aspirin [Halfprin] 81 mg PO DAILY 12/26/18 [History] Cholecalciferol (Vitamin D3) [Vitamin D3] 2,000 units PO BEDTIME 12/26/18 [ History] Fluticasone/Salmeterol [Advair 100-50] 1 puff INH BID 12/26/18 [History] Furosemide [Lasix] 20 mg PO DAILY 12/26/18 [History] Insulin Detemir [Levemir] 17 unit SUBCUT BEDTIME 12/26/18 [History] Losartan [Cozaar] 50 mg PO DAILY 12/26/18 [History] Ubidecarenone [Coenzyme Q-10] 300 mg PO BEDTIME 12/26/18 [History] cloNIDine [Catapres] 0.2 mg PO BID 12/26/18 [History] hydrALAZINE [Apresoline] 50 mg PO BID 12/26/18 [History] Citalopram [Citalopram HBr] 20 mg PO DAILY #30 tablet 01/14/19 [Rx] Past Medical History HEENT History: Reports: Glaucoma, Sinusitis Other HEENT History: sinusitis "quite regularly" Cardiovascular History: Reports: Heart Failure, Hypertension Respiratory History: Reports: COPD, Pneumonia, Recurrent, SOB Gastrointestinal History: Reports: Chronic Constipation Genitourinary History: Reports: Other (See Below) Other Genitourinary History: 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 VERIFY REP History: Reports: Fibroids, , Other (See Below) Other OB/BYN History: Hysterectomy Musculoskeletal History: Reports: None Endocrine/Metabolic History: Reports: Diabetes, Type II - Infectious Disease History Infectious Disease History: Reports: Chicken Pox, Influenza, Measles, Mumps - Past Surgical History Head Surgeries/Procedures: Reports: None HEENT Surgical History: Reports: Adenoidectomy, Cataract Surgery, Tonsillectomy Cardiovascular Surgical History: Reports: None Respiratory Surgical History: Reports: None GI Surgical History: Reports: Appendectomy, Colonoscopy Female Surgical History: Reports: Hysterectomy Endocrine Surgical History: Reports: None Musculoskeletal Surgical History: Reports: None Dermatological Surgical History: Reports: None Social & Family History - Family History Cardiac: Reports: Heart Failure Endocrine/Metabolic: Reports: Diabetes, type II Oncologic: Reports: Brain - Tobacco Use Smoking Status *Q: Former Smoker Used Tobacco, but Quit: Yes Month/Year Tobacco Last Used: December, - Caffeine Use Caffeine Use: Reports: Coffee Other Caffeine Use: decaf coffe and diet pop - Recreational Drug Use Recreational Drug Use: No - Living Situation & Occupation Living situation: Reports: , with Family Occupation: Retired H&P Review of Systems - Review of Systems: Review Of Systems: See Below General: Reports: Malaise, Weakness, Fatigue, Decreased Appetite. Denies: Fever , Chills HEENT: Reports: Glasses, Headaches. Denies: Sinus Congestion, Sore Throat, Visual Changes Pulmonary: Denies: Shortness of Breath, Cough Cardiovascular: Reports: Dyspnea on Exertion (mild), Edema (thighs to feet bilaterally), Lightheadedness. Denies: Chest Pain Gastrointestinal: Reports: Anorexia, Constipation, Diarrhea, Decreased Appetite , Nausea. Denies: Abdominal Pain, Vomiting Genitourinary: Reports: Other (urinating about the same as per usual) Musculoskeletal: Reports: Muscle Stiffness Skin: Reports: No Symptoms Psychiatric: Reports: No Symptoms Neurological: Reports: Dizziness, Headache, Difficulty Walking, Weakness, Gait Disturbance Exam - Exam Exam: See Below - Vital Signs Vital Signs: Last Vital Signs Temp 98.2 F 02/15/19 06:33 Pulse 60 02/15/19 06:33 Resp 18 02/15/19 06:33 BP 135/53 L 02/15/19 06:33 Pulse Ox 97 02/15/19 06:33 Weight: 140 lb - Exam Quality Assessment: Supplemental Oxygen (2 liters per nasal cannula 97%) General: Alert, Oriented, Cooperative, Other (No distress) HEENT: Conjunctiva Clear, Hearing Intact, Mucosa Moist & [place], Posterior Pharynx Clear Neck: Supple, Trachea Midline. No: Lymphadenopathy Lungs: Normal Respiratory Effort, Decreased Breath Sounds (throughout), Crackles (Left upper lobe). No: Wheezing Cardiovascular: Regular Rate, Regular Rhythm, Normal S1, Normal S2, Systolic Murmur (4/6 heard throughout precordium) GI/Abdominal Exam: Normal Bowel Sounds, Soft, Non-Tender, No Distention Extremities: Other (2+ pitting edema from mid-thigh to feet bilaterally) Skin: Warm, Dry Neurological: Normal Speech Neuro Extensive - Mental Status: Alert, Oriented x3, Normal Mood/Affect, Normal Cognition, Memory Intact Psychiatric: Alert, Normal Affect, Normal Mood - Patient Data Lab Results Last 24 hrs: Laboratory Results - last 24 hr 02/14/19 02/14/19 02/14/19 Range/Units 22:00 22:15 22:15 WBC 4.94 L (5.00-10.00) 10^3/uL RBC 3.10 L (3.80-5.50) 10^6/uL Hgb 9.6 L (12.0-16.0) g/dL Hct 30.0 L (37.0-47.0) % MCV 96.8 H (82.0-92.0) fL MCH 31.0 (27.0-31.0) pg MCHC 32.0 (32.0-36.0) g/dL RDW 14.4 (11.5-14.5) % Plt Count 191 (150-400) 10^3/uL MPV 9.5 (7.4-10.4) fL Immature Gran % (Auto) 0.2 (0.0-5.0) % Neut % (Auto) 80.8 H (50.0-70.0) % Lymph % (Auto) 10.3 L (20.0-40.0) % Worth % (Auto) 7.3 (2.0-8.0) % Eos % (Auto) 0.8 L (1.0-3.0) % Baso % (Auto) 0.6 (0.0-1.0) % Immature Gran # (Auto) 0.01 (0.00-0.50) 10^3/uL Neut # (Auto) 3.99 (2.50-7.00) 10^3/uL Lymph # (Auto) 0.51 L (1.00-4.00) 10^3/uL Worth # (Auto) 0.36 (0.10-0.80) 10^3/uL Eos # (Auto) 0.04 L (0.10-0.30) 10^3/uL Baso # (Auto) 0.03 (0.00-0.10) 10^3/uL Sodium 143 (136-145) mmol/L Potassium 4.5 (3.3-5.3) mmol/L Chloride 100 (98-115) mmol/L Carbon Dioxide 32.2 H (21.0-32.0) mmol/L Anion Gap 15.3 H (5-15) mmol/L BUN 69 H* (6-25) mg/dL Creatinine 2.97 H (0.51-1.17) mg/dL Est Cr Clr Drug Dosing 11.57 mL/min Estimated GFR (MDRD) 15 mL/min Glucose 97 (75 - 99) mg/dL POC Glucose (74-106) mg/dl Calcium 8.8 (8.7-10.3) mg/dL Total Bilirubin 0.7 (0.2-1.0) mg/dL AST 24 (15-37) U/L ALT 19 (12-78) U/L Alkaline Phosphatase 79 (46-116) IU/L Creatine Kinase 35 (26-276) U/L CK-MB (CK-2) 2.00 (0.00-4.30) ng/mL Troponin I 0.04 (0.00-0.070) ng/mL B-Natriuretic Peptide 1310 H (0-100) pg/mL Total Protein 6.5 (6.4-8.2) g/dL Albumin 2.83 L (3.00-4.80) g/dL Specimen Type Urincath Urine Color Yellow (YELLOW) Urine Appearance Slightly cloudy H (CLEAR) Urine pH 5.5 (5.0-9.0) Ur Specific Kellogg 1.015 (1.005-1.030) Urine Protein 100 H (NEGATIVE) mg/dL Urine Glucose (UA) Negative (NEGATIVE) mg/dL Urine Ketones Negative (NEGATIVE) mg/dL Urine Occult Blood Negative (NEGATIVE) Urine Nitrite Negative (NEGATIVE) Urine Bilirubin Negative (NEGATIVE) Urine Urobilinogen 1.0 (0.2-1.0) E.U./dL Ur Leukocyte Esterase Negative (NEGATIVE) Urine RBC 0-5 (0-5) /HPF Urine WBC 0-5 (0-5) /HPF Ur Epithelial Cells Few /LPF Urine Bacteria Few (NONE TO FEW) /HPF 02/15/19 02/15/19 02/15/19 Range/Units 07:10 07:10 07:49 WBC 5.48 (5.00-10.00) 10^3/uL RBC 2.57 L (3.80-5.50) 10^6/uL Hgb 7.9 L D (12.0-16.0) g/dL Hct 24.8 L (37.0-47.0) % MCV 96.5 H (82.0-92.0) fL MCH 30.7 (27.0-31.0) pg MCHC 31.9 L (32.0-36.0) g/dL RDW 14.5 (11.5-14.5) % Plt Count 190 (150-400) 10^3/uL MPV 10.4 (7.4-10.4) fL Immature Gran % (Auto) 0.2 (0.0-5.0) % Neut % (Auto) 67.7 (50.0-70.0) % Lymph % (Auto) 15.3 L (20.0-40.0) % Worth % (Auto) 12.0 H (2.0-8.0) % Eos % (Auto) 3.5 H (1.0-3.0) % Baso % (Auto) 1.3 H (0.0-1.0) % Immature Gran # (Auto) 0.01 (0.00-0.50) 10^3/uL Neut # (Auto) 3.71 (2.50-7.00) 10^3/uL Lymph # (Auto) 0.84 L (1.00-4.00) 10^3/uL Worth # (Auto) 0.66 (0.10-0.80) 10^3/uL Eos # (Auto) 0.19 (0.10-0.30) 10^3/uL Baso # (Auto) 0.07 (0.00-0.10) 10^3/uL Sodium 145 (136-145) mmol/L Potassium 4.2 (3.3-5.3) mmol/L Chloride 102 (98-115) mmol/L Carbon Dioxide 31.8 (21.0-32.0) mmol/L Anion Gap 15.4 H (5-15) mmol/L BUN 70 H* (6-25) mg/dL Creatinine 3.04 H (0.51-1.17) mg/dL Est Cr Clr Drug Dosing 11.31 mL/min Estimated GFR (MDRD) 15 mL/min Glucose 55 L (75 - 99) mg/dL POC Glucose 49 L (74-106) mg/dl Calcium 8.5 L (8.7-10.3) mg/dL Total Bilirubin (0.2-1.0) mg/dL AST (15-37) U/L ALT (12-78) U/L Alkaline Phosphatase (46-116) IU/L Creatine Kinase (26-276) U/L CK-MB (CK-2) (0.00-4.30) ng/mL Troponin I (0.00-0.070) ng/mL B-Natriuretic Peptide (0-100) pg/mL Total Protein (6.4-8.2) g/dL Albumin (3.00-4.80) g/dL Specimen Type Urine Color (YELLOW) Urine Appearance (CLEAR) Urine pH (5.0-9.0) Ur Specific Kellogg (1.005-1.030) Urine Protein (NEGATIVE) mg/dL Urine Glucose (UA) (NEGATIVE) mg/dL Urine Ketones (NEGATIVE) mg/dL Urine Occult Blood (NEGATIVE) Urine Nitrite (NEGATIVE) Urine Bilirubin (NEGATIVE) Urine Urobilinogen (0.2-1.0) E.U./dL Ur Leukocyte Esterase (NEGATIVE) Urine RBC (0-5) /HPF Urine WBC (0-5) /HPF Ur Epithelial Cells /LPF Urine Bacteria (NONE TO FEW) /HPF Result Diagrams: 02/15/19 07:10 02/15/19 07:10 Problem List Initiated/Reviewed/Updated: Yes Orders Last 24hrs: Active Orders 24 hr Category Date Time Status Patient Status [ADT] Routine ADT 02/14/19 23:27 Ordered Oxygen Therapy [RC] .PRN Care 02/14/19 23:27 Active Peripheral IV Care [RC] 0900,2100 Care 02/14/19 21:30 Inactive Peripheral IV Care [RC] 0900,2100 Care 02/14/19 23:29 Active Ready for Discharge [RC] PER UNIT ROUTINE Care 02/15/19 10:32 Ordered Up With Assistance [RC] DAILY Care 02/14/19 23:27 Active Vital Signs [RC] 0300,0700,1100,1500,1900,2300 Care 02/14/19 23:27 Active 2 Gram Sodium Diet [DIET] Diet 02/15/19 Breakfast Active ADA Diabetic [[place] [employer] Diet] [DIET Diet 02/15/19 Breakfast Active ] Sodium Chloride 0.9% [Saline Flush] Med 02/14/19 23:27 Active 10 ml FLUSH Q8HR PRN Peripheral IV Insertion Adult [OM.PC] Routine Oth 02/14/19 23:27 Ordered Resuscitation Status Routine Resus Stat 02/14/19 23:27 Ordered EKG 12 Lead [EK] Routine Ther 02/14/19 21:30 Ordered Medication Orders Sodium Chloride (Saline Flush) 10 ml FLUSH Q8HR PRN PRN Reason: keep vein open Assessment/Plan Comment:: Primary Assessment/Plan: Generalized weakness and deconditioning. End stage renal disease, not on dialysis. Hgb 7.9, BUN 70, creatinine 3.04, K 4.2, Calcium 8.5. Baseline creatinine 2.5-2.7 and GFR 17-20. Elevated BNP with history of CHF. Likely false result given ESRD and patient asymptomatic. Chest x-ray notes bibasilar infiltrates, small bilateral pleural effusions, progressive discoid atelectasis in right lung base. ECHO (2013) shows EF 55-60% with normal systolic and diastolic function. Bibasilar infiltrates. Patient has been afebrile with WBC 5.48. Secondary Assessment/Plan: HTN. Aortic stenosis. Type 2 DM. Hypercholesterolemia. Venous stasis dermatitis of bilateral lower extremities. Primary osteoarthritis of multiple joints. Primary open angle glaucoma Overall plan: Patient admitted overnight to determine treatment plan and disposition on rounds this morning. Call placed to [facility] and spoke with Dr. Almaguer, carton forming machine helper, regarding patient case. He gave two options: 1) patient be transferred to their facility or 2) patient could be given lasix 40 mg IV BID with repeat labs in the AM. He noted that with a GFR drop of only 2 points she likely wouldn't need dialysis, but without seeing her himself he could not determine that for sure. Discussed options with patient and daughter- in-law and they would like to proceed with transfer to [place]. Coordinated the transfer with Dr. Flaherty, hospitalist, who has accepted the patient. She will be transferred via S ambulance. Patient's vital signs are stable and glucose was low this morning at 49. No medications were given during her stay. This note will serve as the admission H&P and the discharge summary. >30 minutes spent on coordinating care for discharge.
[2019-02-15 11:38] VITALS: BP 163/54
== END 2019-02-15 12:15 | DRG 305 ==
LOC: KA.ED 21:06 → KA.MS 23:25
PROVIDERS: ADMIT Physician Assistant Medical; ATTEND Nurse Practitioner Family
DX: I13.10 Hypertensive heart and chronic kidney disease without heart failure, with stage 1 through stage 4 chronic kidney disease, or unspecified chronic kidney disease (principal); N18.4 Chronic kidney disease, stage 4 (severe); J44.9 Chronic obstructive pulmonary disease, unspecified; I50.9 Heart failure, unspecified; K59.09 Other constipation; E11.22 Type 2 diabetes mellitus with diabetic chronic kidney disease; I35.0 Nonrheumatic aortic (valve) stenosis; E78.00 Pure hypercholesterolemia, unspecified; M19.91 Primary osteoarthritis, unspecified site; I87.8 Other specified disorders of veins; H40.1190 Primary open-angle glaucoma, unspecified eye, stage unspecified; Z88.8 Allergy status to other drugs, medicaments and biological substances; Z90.710 Acquired absence of both cervix and uterus; Z90.49 Acquired absence of other specified parts of digestive tract; Z88.1 Allergy status to other antibiotic agents; Z79.899 Other long term (current) drug therapy; Z79.82 Long term (current) use of aspirin; Z79.4 Long term (current) use of insulin; Z98.49 Cataract extraction status, unspecified eye; Z87.891 Personal history of nicotine dependence
CPT/HCPCS: 36415; 71045; 80048; 80053; 81001; 82550; 82553; 82962; 83880; 84484; 85025; 93005; 99284; 99285-25

== ENCOUNTER 2022-03-25 14:19 | Emergency (ER) | payer MEDICARE, BC ==
[2022-03-25] MEDS ORDERED: Sodium Chloride 0.9% 10 ML Syringe FLUSH PRN (14:27)
[2022-03-25] MEDS ORDERED: Ondansetron 4 MG/2 ML SDV IVPUSH ONE (14:32)
[2022-03-25 14:42] VITALS: BP 129/48; PULSE 76
[2022-03-25 14:55] LABS: ANION GAP 14.5 mmol/L (5-15)
== END 2022-03-25 19:10 ==
LOC: KA.ED 14:19
DX: K56.609 Unspecified intestinal obstruction, unspecified as to partial versus complete obstruction (principal); R11.2 Nausea with vomiting, unspecified; I13.0 Hypertensive heart and chronic kidney disease with heart failure and stage 1 through stage 4 chronic kidney disease, or unspecified chronic kidney disease; E11.22 Type 2 diabetes mellitus with diabetic chronic kidney disease; I50.9 Heart failure, unspecified; N18.4 Chronic kidney disease, stage 4 (severe); J44.9 Chronic obstructive pulmonary disease, unspecified; Z99.2 Dependence on renal dialysis; Z88.1 Allergy status to other antibiotic agents; Z88.8 Allergy status to other drugs, medicaments and biological substances; Z79.82 Long term (current) use of aspirin; Z79.899 Other long term (current) drug therapy
CPT/HCPCS: 36415; 74018; 74176; 80053; 83690; 83880; 85025; 96374; 99284; 99284-25; J2405

== ENCOUNTER 2022-04-19 08:50 | Emergency (ER) | payer MEDICARE, BC ==
[2022-04-19 09:02] VITALS: BP 142/65; PULSE 79
[2022-04-19 09:40] LABS: ANION GAP 14.2 mmol/L (5-15); CHLORIDE,CL 100 mmol/L (98-107); SODIUM,NA 129 mmol/L (136-145)
[2022-04-19] MEDS ORDERED: Dextrose 5%-0.9% NaCl 1,000 ML IV SCH (11:15)
== END 2022-04-19 18:00 ==
LOC: KA.ED 08:50
DX: R62.7 Adult failure to thrive (principal); E11.649 Type 2 diabetes mellitus with hypoglycemia without coma; E87.1 Hypo-osmolality and hyponatremia; I13.2 Hypertensive heart and chronic kidney disease with heart failure and with stage 5 chronic kidney disease, or end stage renal disease; I50.9 Heart failure, unspecified; N18.5 Chronic kidney disease, stage 5; J44.9 Chronic obstructive pulmonary disease, unspecified; Z90.49 Acquired absence of other specified parts of digestive tract; Z90.710 Acquired absence of both cervix and uterus; Z79.899 Other long term (current) drug therapy; Z79.82 Long term (current) use of aspirin; Z79.4 Long term (current) use of insulin; Z88.1 Allergy status to other antibiotic agents; Z88.8 Allergy status to other drugs, medicaments and biological substances; Z99.2 Dependence on renal dialysis
CPT/HCPCS: 36415; 71045; 80053; 82947; 85025; 99284; 99285-25; J7042

== ENCOUNTER 2023-06-23 16:02 | Emergency (ER) | payer MEDICARE, BC ==
[2023-06-23] MEDS: Sodium Chloride 0.9% 1,000 ML IV ONE (16:20)
[2023-06-23 16:30] LABS: BASOPHILS ABSOLUTE AUTO 0.06 10^3/uL (0.00-0.10); BASOPHILS PERCENT AUTO 0.7 % (0.0-1.0); EOSINOPHILS ABSOLUTE AUTO 0.32 10^3/uL (0.10-0.30); EOSINOPHILS PERCENT AUTO 3.7 % (1.0-3.0); HEMATOCRIT 31.2 % (37.0-47.0); IMMATURE GRAN ABSOLUTE AUTO 0.01 10^3/uL (0.00-0.50); IMMATURE GRAN PERCENT AUTO 0.1 % (0.0-5.0); LYMPHOCYTES ABSOLUTE AUTO 1.35 10^3/uL (1.00-4.00); LYMPHOCYTES PERCENT AUTO 15.6 % (20.0-40.0); MEAN CORPUSCULAR HEMOGLOBIN 31.4 pg (27.0-31.0); MEAN CORPUSCULAR HGB CONC 32.1 g/dL (32.0-36.0); MEAN CORPUSCULAR VOLUME 98.1 fL (82.0-92.0); MEAN PLATELET VOLUME 10.6 fL (7.4-10.4); MONOCYTES ABSOLUTE AUTO 0.71 10^3/uL (0.10-0.80); MONOCYTES PERCENT AUTO 8.2 % (2.0-8.0); NEUTROPHILS ABSOLUTE AUTO 6.23 10^3/uL (2.50-7.00); NEUTROPHILS PERCENT AUTO 71.7 % (50.0-70.0); PLATELET COUNT,PLT 184 10^3/uL (150-400); RED BLOOD CELL COUNT 3.18 10^6/uL (3.80-5.50); WHITE BLOOD CELL COUNT,WBC 8.68 10^3/uL (5.00-10.00)
[2023-06-23] MEDS: Sodium Chloride 0.9% 1,000 ML ONE (16:32)
[2023-06-23 17:21] VITALS: BP 136/43; PULSE 66
== END 2023-06-23 17:30 | disposition home or self-care (01) ==
LOC: KA.ED 16:02
DX: T82.590A Other mechanical complication of surgically created arteriovenous fistula, initial encounter (principal); R42 Dizziness and giddiness; I12.9 Hypertensive chronic kidney disease with stage 1 through stage 4 chronic kidney disease, or unspecified chronic kidney disease; E11.22 Type 2 diabetes mellitus with diabetic chronic kidney disease; N18.4 Chronic kidney disease, stage 4 (severe); Z99.2 Dependence on renal dialysis; I48.91 Unspecified atrial fibrillation; J44.9 Chronic obstructive pulmonary disease, unspecified; Z79.82 Long term (current) use of aspirin; Z79.4 Long term (current) use of insulin; Z79.899 Other long term (current) drug therapy; Z88.1 Allergy status to other antibiotic agents; Z88.8 Allergy status to other drugs, medicaments and biological substances
CPT/HCPCS: 36415; 85025; 96360; 99284; 99284-25; J7030

== ENCOUNTER 2023-08-08 15:25 | Emergency (ER) | payer MEDICARE, BC ==
[2023-08-08 15:46] LABS: BASOPHILS ABSOLUTE AUTO 0.05 10^3/uL (0.00-0.10); BASOPHILS PERCENT AUTO 0.6 % (0.0-1.0); EOSINOPHILS ABSOLUTE AUTO 0.51 10^3/uL (0.10-0.30); EOSINOPHILS PERCENT AUTO 5.8 % (1.0-3.0); HEMATOCRIT 37.4 % (37.0-47.0); HEMOGLOBIN 11.5 g/dL (12.0-16.0); IMMATURE GRAN ABSOLUTE AUTO 0.03 10^3/uL (0.00-0.50); IMMATURE GRAN PERCENT AUTO 0.3 % (0.0-5.0); LYMPHOCYTES ABSOLUTE AUTO 1.32 10^3/uL (1.00-4.00); LYMPHOCYTES PERCENT AUTO 15.1 % (20.0-40.0); MEAN CORPUSCULAR HGB CONC 30.7 g/dL (32.0-36.0); MEAN CORPUSCULAR VOLUME 100.8 fL (82.0-92.0); MEAN PLATELET VOLUME 10.4 fL (7.4-10.4); MONOCYTES ABSOLUTE AUTO 1.02 10^3/uL (0.10-0.80); MONOCYTES PERCENT AUTO 11.7 % (2.0-8.0); NEUTROPHILS ABSOLUTE AUTO 5.79 10^3/uL (2.50-7.00); NEUTROPHILS PERCENT AUTO 66.5 % (50.0-70.0); PLATELET COUNT,PLT 123 10^3/uL (150-400); RED BLOOD CELL COUNT 3.71 10^6/uL (3.80-5.50); RED CELL DISTRIBUTION WIDTH 16.2 % (11.5-14.5); WHITE BLOOD CELL COUNT,WBC 8.72 10^3/uL (5.00-10.00)
[2023-08-08 15:59] LABS: ANION GAP 10.8 mmol/L (5-15); BLOOD UREA NITROGEN,BUN 34 mg/dL (7-18); CALCIUM 9.1 mg/dL (8.7-10.3); CHLORIDE,CL 99 mmol/L (98-107); CREATININE 4.38 mg/dL (0.51-1.17); GLUCOSE RANDOM 108 mg/dL (70-140); POTASSIUM,K 3.8 mmol/L (3.5-5.1); SODIUM,NA 139 mmol/L (136-145)
[2023-08-08 16:00] LABS: ESTIMATED GFR 10 mL/min (>=60)
[2023-08-08 16:05] LABS: B-TYPE NATRIURETIC PEPTIDE,BNP 919 pg/mL (0-100)
[2023-08-08 16:08] VITALS: BP 143/44; PULSE 73
== END 2023-08-08 17:30 | disposition home or self-care (01) ==
LOC: KA.ED 15:25
DX: J20.9 Acute bronchitis, unspecified (principal); I48.91 Unspecified atrial fibrillation; I13.0 Hypertensive heart and chronic kidney disease with heart failure and stage 1 through stage 4 chronic kidney disease, or unspecified chronic kidney disease; E11.22 Type 2 diabetes mellitus with diabetic chronic kidney disease; N18.4 Chronic kidney disease, stage 4 (severe); I50.9 Heart failure, unspecified; J44.9 Chronic obstructive pulmonary disease, unspecified; M19.90 Unspecified osteoarthritis, unspecified site; Z99.2 Dependence on renal dialysis; Z88.8 Allergy status to other drugs, medicaments and biological substances; Z88.1 Allergy status to other antibiotic agents; Z79.82 Long term (current) use of aspirin; Z79.899 Other long term (current) drug therapy; Z79.4 Long term (current) use of insulin
CPT/HCPCS: 36415; 71046; 80048; 83605; 83880; 85025; 87040; 99285

== ENCOUNTER 2023-09-22 11:13 | Inpatient (IN) | payer MEDICARE, BC ==
[2023-09-22 11:35] LABS: BASOPHILS ABSOLUTE AUTO 0.06 10^3/uL (0.00-0.10); BASOPHILS PERCENT AUTO 0.3 % (0.0-1.0); EOSINOPHILS ABSOLUTE AUTO 0.32 10^3/uL (0.10-0.30); EOSINOPHILS PERCENT AUTO 1.7 % (1.0-3.0); HEMATOCRIT 32.5 % (37.0-47.0); HEMOGLOBIN 9.9 g/dL (12.0-16.0); IMMATURE GRAN PERCENT AUTO 0.5 % (0.0-5.0); LYMPHOCYTES ABSOLUTE AUTO 1.32 10^3/uL (1.00-4.00); LYMPHOCYTES PERCENT AUTO 6.9 % (20.0-40.0); MEAN CORPUSCULAR HEMOGLOBIN 30.9 pg (27.0-31.0); MEAN CORPUSCULAR HGB CONC 30.5 g/dL (32.0-36.0); MEAN CORPUSCULAR VOLUME 101.6 fL (82.0-92.0); MEAN PLATELET VOLUME 10.5 fL (7.4-10.4); MONOCYTES ABSOLUTE AUTO 0.88 10^3/uL (0.10-0.80); MONOCYTES PERCENT AUTO 4.6 % (2.0-8.0); NEUTROPHILS ABSOLUTE AUTO 16.58 10^3/uL (2.50-7.00); PLATELET COUNT,PLT 258 10^3/uL (150-400); RED CELL DISTRIBUTION WIDTH 16.3 % (11.5-14.5); WHITE BLOOD CELL COUNT,WBC 19.26 10^3/uL (5.00-10.00)
[2023-09-22 11:43] LABS: BLOOD UREA NITROGEN,POC 77 mg/dL (8-26); CHLORIDE,POC 102 mmol/l (98-107); ESTIMATED GFR, POC 5 mL/min (>=60); POTASSIUM,POC 3.8 mmol/L (3.5-4.5); SODIUM,POC 138 mmol/L (138-146)
[2023-09-22] MEDS ORDERED: Furosemide 40 MG/4 ML VIAL IVPUSH ONE (11:53)
[2023-09-22] MEDS ORDERED: cefTRIAXone 1 GM Vial IVPUSH ONE (11:54)
[2023-09-22 11:56] LABS: CREATININE,POC 7.08 mg/dL (0.51-1.19)
[2023-09-22 12:27] LABS: O2 DELIVERY DEVICE OM; PH,ARTERIAL 7.23 (7.35-7.45)
[2023-09-22 12:28] LABS: BASE EXCESS ARTERIAL 1 mmol/L (-2-3); BICARBONATE,ARTERIAL 30.4 mmol/L (22-26); O2 SATURATION ARTERIAL 84 % (95-98); PO2 ARTERIAL 60 mmHG (80-105)
[2023-09-22 12:29] LABS: PCO2 ARTERIAL 73 mmHG (35-45)
[2023-09-22] MEDS ORDERED: Acetaminophen 325 MG Tab PO PRN (14:37)
[2023-09-22] MEDS ORDERED: Docusate Sodium 100 MG Cap PO PRN (14:37)
[2023-09-22] MEDS ORDERED: Albuterol 0.083% 2.5 MG/3 ML Neb Soln NEB PRN (14:37)
[2023-09-22] MEDS ORDERED: Sodium Chloride 0.9% 10 ML Syringe FLUSH PRN (14:37)
[2023-09-22] MEDS ORDERED: Ondansetron 4 MG/2 ML SDV IV PRN (14:37)
[2023-09-22] MEDS ORDERED: oxyCODONE 5 MG Tab PO PRN (14:37)
[2023-09-22] MEDS ORDERED: Heparin Sodium 5,000 Units/ML Vial SUBCUT SCH (14:45)
[2023-09-22] MEDS ORDERED: Bisacodyl 5 MG Tab PO PRN (14:57)
[2023-09-22] MEDS ORDERED: Aspirin 81 MG Tab.EC PO SCH (15:00)
[2023-09-22] MEDS ORDERED: Bumetanide 1 MG/4 ML MDV IVPUSH ONE (15:07)
[2023-09-22] MEDS ORDERED: Nystatin Topical Powder 15 GM Bottle TOP PRN (15:20)
[2023-09-22 15:24] LABS: ALBUMIN 3.09 g/dL (3.40-5.00); ANION GAP 11.7 mmol/L (5-15); BILIRUBIN TOTAL 0.5 mg/dL (0.2-1.0); CALCIUM 8.7 mg/dL (8.7-10.3); CARBON DIOXIDE,CO2 32.5 mmol/L (21.0-32.0); CREATININE 6.05 mg/dL (0.51-1.17); EST CRCL DRUG DOSING (CG) 5.24 mL/min; MAGNESIUM 2.8 mg/dL (1.8-2.4); POTASSIUM,K 4.2 mmol/L (3.5-5.1); PROTEIN TOTAL,TP 6.9 g/dL (6.4-8.2)
[2023-09-22] MEDS ORDERED: Lidocaine 2% Viscous Solution 15 ML UD PO PRN (16:45)
[2023-09-22] MEDS ORDERED: Morphine 2 MG/ML SYRINGE IV PRN (16:45)
[2023-09-22] MEDS ORDERED: Morphine Solution 10 MG/5 ML UD Cup PO PRN (16:45)
[2023-09-22] MEDS ORDERED: LORazepam 2 MG/ML SDV IV PRN (16:45)
[2023-09-22] MEDS ORDERED: Carvedilol 12.5 MG Tab PO SCH (18:00)
[2023-09-22] MEDS ORDERED: Non-Formulary Medication 1 Each (Calcium Acetate [Phoslo] 667 MG Cap) PO SCH (18:00)
[2023-09-22] MEDS ORDERED: hydrOXYzine HCl 25 MG Tab PO SCH (21:00)
[2023-09-22] MEDS ORDERED: Insulin Glargine,Hum.Rec.Anlog 100 UNIT/ML 3 ML Pen SUBCUT SCH (21:00)
[2023-09-22] MEDS ORDERED: Magnesium Oxide 500 MG Tab PO SCH (21:00)
[2023-09-22] MEDS ORDERED: Digoxin 125 MCG Tab PO SCH (21:00)
[2023-09-22] MEDS: Bumetanide 1 MG/4 ML MDV IVPUSH SCH (21:25)
[2023-09-22] MEDS: Melatonin 3 MG Tab PO SCH (22:09)
[2023-09-23] MEDS: Bumetanide 1 MG/4 ML MDV IVPUSH SCH ×2 (08:16→21:37)
[2023-09-23] MEDS ORDERED: amLODIPine 5 MG Tab PO SCH (09:00)
[2023-09-23] MEDS ORDERED: 50% Dextrose in Water 50 ML Syringe IVPUSH PRN (18:43)
[2023-09-23] MEDS ORDERED: Glucagon,Human Recombinant 1 MG Vial IM PRN (18:43)
[2023-09-23 19:03] LABS: ALBUMIN 3.02 g/dL (3.40-5.00); ANION GAP 10.7 mmol/L (5-15); CALCIUM 8.3 mg/dL (8.7-10.3); CARBON DIOXIDE,CO2 33.1 mmol/L (21.0-32.0); CREATININE 6.51 mg/dL (0.51-1.17); EST CRCL DRUG DOSING (CG) 4.87 mL/min; PHOSPHORUS 4.8 mg/dL (2.6-4.7); POTASSIUM,K 3.8 mmol/L (3.5-5.1)
[2023-09-23] MEDS: Insulin Lispro 100 Unit/ML 3 ML KwikPen SUBCUT SCH (20:09)
[2023-09-23] MEDS ORDERED: Digoxin 125 MCG Tab PO SCH (21:00)
[2023-09-23] MEDS ORDERED: QUEtiapine 25 MG Tab PO SCH (21:00)
[2023-09-23] MEDS ORDERED: traZODone 50 MG Tab PO SCH (21:00)
[2023-09-23] MEDS: Melatonin 3 MG Tab PO SCH (21:38)
[2023-09-23] MEDS: hydrOXYzine HCl 25 MG Tab PO SCH (21:53)
[2023-09-23] MEDS: amLODIPine 5 MG Tab PO SCH (21:53)
[2023-09-23] MEDS: Carvedilol 12.5 MG Tab PO SCH (21:54)
[2023-09-24 07:12] LABS: HEMATOCRIT 27.6 % (37.0-47.0); HEMOGLOBIN 8.5 g/dL (12.0-16.0); MEAN CORPUSCULAR HEMOGLOBIN 31.5 pg (27.0-31.0); MEAN CORPUSCULAR HGB CONC 30.8 g/dL (32.0-36.0); MEAN CORPUSCULAR VOLUME 102.2 fL (82.0-92.0); MEAN PLATELET VOLUME 9.6 fL (7.4-10.4); PLATELET COUNT,PLT 258 10^3/uL (150-400); WHITE BLOOD CELL COUNT,WBC 8.99 10^3/uL (5.00-10.00)
[2023-09-24 07:31] LABS: ALBUMIN 2.82 g/dL (3.40-5.00); ANION GAP 10.7 mmol/L (5-15); CARBON DIOXIDE,CO2 33.7 mmol/L (21.0-32.0); CREATININE 6.79 mg/dL (0.51-1.17); EST CRCL DRUG DOSING (CG) 4.67 mL/min; PHOSPHORUS 5.2 mg/dL (2.6-4.7); POTASSIUM,K 4.4 mmol/L (3.5-5.1)
[2023-09-24] MEDS: Insulin Lispro 100 Unit/ML 3 ML KwikPen SUBCUT SCH ×2 (08:47→12:09)
[2023-09-24] MEDS: Bumetanide 1 MG/4 ML MDV IVPUSH SCH (09:00)
[2023-09-24] MEDS: DRONABINOL 2.5 MG PO SCH ×2 (09:00→12:01)
[2023-09-24] MEDS: hydrOXYzine HCl 25 MG Tab PO SCH ×2 (10:57→15:04)
[2023-09-24] MEDS: Carvedilol 12.5 MG Tab PO SCH (10:57)
[2023-09-24] MEDS: amLODIPine 5 MG Tab PO SCH (10:58)
[2023-09-24 15:12] VITALS: BP 129/43; PULSE 63
[2023-09-24] MEDS ORDERED: Carvedilol 12.5 MG Tab PO SCH (18:36)
== END 2023-09-24 15:25 | DRG 291 ==
LOC: KA.ED 11:13 → KA.MS 14:05
PROVIDERS: ADMIT Family Medicine; ATTEND Family Medicine
PROC: 4A033R1 Measurement of Arterial Saturation, Peripheral, Percutaneous Approach (ICD-10-PCS; principal; 2023-09-22)
DX: I13.2 Hypertensive heart and chronic kidney disease with heart failure and with stage 5 chronic kidney disease, or end stage renal disease (principal); G93.41 Metabolic encephalopathy; J96.01 Acute respiratory failure with hypoxia; N18.6 End stage renal disease; I50.33 Acute on chronic diastolic (congestive) heart failure; F41.9 Anxiety disorder, unspecified; Z66 Do not resuscitate; H40.9 Unspecified glaucoma; I48.91 Unspecified atrial fibrillation; F17.210 Nicotine dependence, cigarettes, uncomplicated; J44.9 Chronic obstructive pulmonary disease, unspecified; K59.09 Other constipation; M19.90 Unspecified osteoarthritis, unspecified site; E11.22 Type 2 diabetes mellitus with diabetic chronic kidney disease; Z90.710 Acquired absence of both cervix and uterus; Z98.49 Cataract extraction status, unspecified eye; Z90.49 Acquired absence of other specified parts of digestive tract; Z79.82 Long term (current) use of aspirin; Z79.4 Long term (current) use of insulin; Z79.899 Other long term (current) drug therapy; Z99.81 Dependence on supplemental oxygen; Z98.890 Other specified postprocedural states; Z88.8 Allergy status to other drugs, medicaments and biological substances; Z99.2 Dependence on renal dialysis; Z91.040 Latex allergy status; Z87.01 Personal history of pneumonia (recurrent); Z83.3 Family history of diabetes mellitus
CPT/HCPCS: 36415; 36600; 71045; 80047; 80053; 80069; 82803; 82947; 83605; 83735; 83880; 84145; 84484; 85025; 85027; 87040; 96374; 96375; 99284; 99285-25; A9270-GY; J0696; J1815-GY; J1940; J3490; Q3014